=== PATIENT | female | born 1990 | race Caucasian/White ===

== ENCOUNTER 2016-11-16 13:46 | Emergency (ER) | payer MEDICAID ==
[~2016-11-16] VITALS: Ht 170.2 cm; Wt 75.0 kg
[~2016-11-16 13:46] MED LIST: ALBUAER3 INH; APIX2.5T PO; ASPI81TA11 PO; CYCL5TAB PO; FLUO20CA4 PO; prenatal vitamins PO
[2016-11-16 13:48] VITALS: BP 129/80; PULSE 112; RESP 20; TEMP 98; O2SAT 96
--- NOTE | 2016-11-16 15:31 | PD ---
HPI Chief Complaint: Back/ Neck Pain or Injury Time Seen by Provider: 15:30 Travel History International Travel<30 days: No Contact w/Intl Traveler<30days: No Traveled to known affect area: No History of Present Illness HPI 26 year-old female presents emergency department for evaluation of low back pain radiating into her left lower extremity. Patient states 2 nights ago she was therefore to hospital and received an injection of steroids for an upper rest or infection. She is currently on prednisone. She states that shortly after the injection she started developing pain shooting into her left leg. She states that the point where it was going down both legs today. She states that it has since resolved. She is sitting in the bed, crying, stating "this always happens to me. Accompanied emergency department and it takes so long that things get better." [facility]. Denies fever or chills. No urinary symptoms. No loss of bowel or bladder. No saddle paresthesia. No other symptoms to report. Patient is on ELOQUIS for a clotting disorder-she is uncertain of the name. PFSH Past Medical History Arthritis: No Asthma: Yes ( A CHILD) Autoimmune Disease: No Blood Disorders: Yes (PE) Anxiety: Yes Depression: Yes Heart Rhythm Problems: No Cancer: No Cardiovascular Problems: No High Cholesterol: No Chemotherapy: No Chest Pain: No Congestive Heart Failure: No COPD: No Cerebrovascular Accident: No Diabetes: No Diminished Hearing: No Endocrine: No Gastrointestinal Disorders: Yes (GALLSTONE PANCREATITIS) GERD: No Glaucoma: No Genitourinary: No Headaches: Yes Hepatitis: No Hiatal Hernia: No Hypertension: No Immune Disorder: No Kidney Stones: No Musculoskeletal: No Neurologic: No Psychiatric: No Reproductive: No Respiratory: No Migraines: Yes Myocardial Infarction: No Pancreatitis: Yes Radiation Therapy: No Renal Failure: No Seizures: No Sickle Cell Disease: No Sleep Apnea: No Thyroid Disease: No Ulcer: No ?: Not Menopausal: No : 1 Para: 1 Miscarriage: 0 : 0 Past Surgical History Abdominal Surgery: No AICD: No Appendectomy: No Arteriovenous Shunt: No Cardiac Surgery: No Cholecystectomy: Yes Ear Surgery: No Endocrine Surgery: No Eye Surgery: No Genitourinary Surgery: No Gynecologic Surgery: No Insulin Pump: No Joint Replacement: No Oral Surgery: No Pacemaker: No Thoracic Surgery: No Social History Alcohol Use: No Tobacco Use: No (quit) Substance Use: No Allergies-Medications (Allergen,Severity, Reaction): Coded Allergies: Sulfa (Verified Allergy, Severe, 11/16/16) Reported Meds & Prescriptions Reported Meds & Active Scripts Active Robaxin (Methocarbamol) 750 Mg Tab 750 Mg PO QID PRN Fluoxetine (Fluoxetine HCl) 20 Mg Cap 20 Mg PO DAILY Reported Eliquis (Apixaban) 2.5 Mg Tab 2.5 Mg PO BID Proair Hfa 8.5 GM Inh (Albuterol Sulfate) 90 Mcg/Act Aer 1 Puff INH Q6HR PRN 108 mcg/actuation Review of Systems Except as stated in HPI: all other systems reviewed are Neg Physical Exam Narrative GENERAL: Well-nourished, well-developed [place] patient, ambulatory and in no acute distress SKIN: Warm and dry. HEAD: Normocephalic. Atraumatic EYES: No scleral icterus. No injection or drainage. NECK: Supple, trachea midline. No JVD or lymphadenopathy. CARDIOVASCULAR: Regular rate and rhythm without murmurs, gallops, or rubs. RESPIRATORY: Breath sounds equal bilaterally. No accessory muscle use. MUSCULOSKELETAL: No cyanosis, or edema. No midline spinal tenderness. Equal strength bilateral lower extremity. No alterations in sensation the distal extremities. BACK: Nontender without obvious deformity. No CVA tenderness. Data Data Last Documented VS Vital Signs Date Time Temp Pulse Resp B/P Pulse Ox O2 Delivery O2 Flow Rate FiO2 11/16/16 16:20 98 20 11/16/16 13:48 98.0 129/80 96 Room Air Orders Splint Or Brace Apply/Monitor (11/16/16 15:31) Brace Quick Draw Corset (11/16/16 ) MDM Medical Decision Making Medical Screen Exam Complete: Yes Emergency Medical Condition: Yes Medical Record Reviewed: Yes Differential Diagnosis Sciatica versus low back strain versus discogenic pain versus radiculopathy Narrative Course 26 year-old female presents to emergency department for evaluation. Patient appears well distress. No focal deficits or weakness. No spinal tenderness. Patient is frustrated that she is not having symptoms currently and she waited so long in the emergency department. I offered her muscle relaxant and encouraged her to continue taking her steroids. I also offered her a quick draw back brace. She accepts these. She is counseled on care and is discharged at this time Diagnosis Primary Impression: Sciatica of right side Referrals: Primary Care Physician Patient Instructions: General Instructions, Sciatica (ED) Additional Instructions: Avoid activity that exacerbates pain Wear brace for support while ambulatory. Do not wear this at all times as it will weaken her car muscles, potentially worsening her low back pain and sciatica Follow-up with a primary care provider Return immediately with any acute worsening symptoms Med/Other Pt SpecificInfo: Prescription(s) given Scripts Methocarbamol (Robaxin)750 Mg [id number] Mg PO QID PRN (MUSCLE SPASM) #20 TAB Ref 0 Prov:Lydia Coelho 11/16/16 Disposition: 01 DISCHARGE HOME Condition: Stable Lydia Coelho Nov 16, 2016 15:30
[2016-11-16] MEDS ORDERED: ROBA750T PO (16:13)
[2016-11-25] MEDS ORDERED: VIST25CA PO (09:34)
[2017-01-11] MEDS ORDERED: WELLTAB39 PO (15:10)
[2017-02-03] MEDS ORDERED: NYSTCRE29 TOPICAL (15:41)
[2017-02-03] MEDS ORDERED: ACYC800T PO (15:41)
[2017-02-03] MEDS ORDERED: DIFL150T PO (15:41)
== END 2016-11-16 16:42 | disposition home or self-care (01) ==
LOC: NETRI 13:46
DX: M54.31 Sciatica, right side (principal); F41.8 Other specified anxiety disorders
CPT/HCPCS: 99283; L0627

== ENCOUNTER 2017-04-08 12:59 | Emergency (ER) | payer MEDICAID ==
[~2017-04-08] VITALS: Ht 170.2 cm; Wt 84.0 kg
[~2017-04-08 12:59] MED LIST changes: +ACYC800T PO; -ASPI81TA11 PO; -CYCL5TAB PO; +DIFL150T PO; -FLUO20CA4 PO; +NYSTCRE29 TOPICAL; +VIST25CA PO; +WELLTAB39 PO; -prenatal vitamins PO
[2017-04-08 13:01] VITALS: BP 125/98; PULSE 92; RESP 24; TEMP 97.9; O2SAT 98
[2017-04-08 13:20] VITALS: BP 126/89; PULSE 93; RESP 18; O2SAT 98
[2017-04-08] MEDS ORDERED: SODIUM CHLOR 0.9% 1000 ML INJ 1,000 ML IV ONE (13:30)
[2017-04-08] MEDS ORDERED: ONDANSETRON HCL 4 MG/2 ML VIAL IV PUSH ONE (13:30)
[2017-04-08] MEDS ORDERED: MORPHINE SULFATE 4 MG/ML INJ IV PUSH ONE (13:30)
--- NOTE | 2017-04-08 13:33 | PD ---
HPI Chief Complaint: Pain: Acute or Chronic Time Seen by Provider: 13:18 Travel History International Travel<30 days: No Contact w/Intl Traveler<30days: No Traveled to known affect area: No History of Present Illness HPI The patient is a 27-year-old female who presents to the emergency department for left ear pain at 3 weeks duration. The patient states she was evaluated 3 weeks ago and [facility] for a left earache and was diagnosed with an ear infection. The patient was placed on medications and discharged home. The patient returned continued to complain of left ear pain and then was diagnosed with bilateral ear infections and her antibiotics were changed. The patient was then evaluated at an urgent care last night he stated the ear infection appeared to have moved inside. However, the patient notes increasing pain of the left posterior neck that radiates up into the head and behind the left eye. The pain is worse with any type of movement, she states she developed an ocular migraine secondary to the pain. Patient does have a previous history of migraines. The pain is located mostly to the neck on the left side radiating to the head, she denies any acute trauma to the affected area and denies any fever, chills, or sweats. She does complain of mild pain with movement of the left thigh behind the left eye which she tripped is to her ocular migraine. The patient does have a history of antiphospholipid syndrome with previous PE, but does not take her Coumadin. The patient states she was being followed by deli cutter slicer but has not seen deli cutter slicer a prolonged period of time and has not been compliant with her Coumadin. The patient also states she is unable to see an ENT because she needs referral through her primary physician and does not have a primary physician currently. PFSH Past Medical History Hx Anticoagulant Therapy: Yes (SUPPOSED TO BE ON ELIQUIS - TOOK LAST 2 WEEKS AGO) Arthritis: No Asthma: Yes ( A CHILD) Autoimmune Disease: No Blood Disorders: Yes (PE 2013 ) Anxiety: Yes Depression: Yes Heart Rhythm Problems: No Cancer: No Cardiovascular Problems: Yes (PE 2013) High Cholesterol: No Chemotherapy: No Chest Pain: No Congestive Heart Failure: No COPD: No Cerebrovascular Accident: No Diabetes: No Diminished Hearing: No Endocrine: No Gastrointestinal Disorders: Yes (GALLSTONE PANCREATITIS) GERD: No Glaucoma: No Genitourinary: No Headaches: Yes Hepatitis: No Hiatal Hernia: No Hypertension: No Immune Disorder: No Kidney Stones: No Musculoskeletal: No Neurologic: No Psychiatric: No Reproductive: No Respiratory: Yes (ASTHMA ) Migraines: Yes Myocardial Infarction: No Pancreatitis: Yes Radiation Therapy: No Renal Failure: No Seizures: No Sickle Cell Disease: No Sleep Apnea: No Thyroid Disease: No Ulcer: No ?: Unknown Menopausal: No : 1 Para: 1 Miscarriage: 0 : 0 Past Surgical History Abdominal Surgery: No AICD: No Appendectomy: No Arteriovenous Shunt: No Cardiac Surgery: No Cholecystectomy: Yes (2009) Ear Surgery: No Endocrine Surgery: No Eye Surgery: No Genitourinary Surgery: No Gynecologic Surgery: No Insulin Pump: No Joint Replacement: No Oral Surgery: No Pacemaker: No Thoracic Surgery: No Social History Alcohol Use: No Tobacco Use: Yes (1-2 cig a day ) Substance Use: No Allergies-Medications (Allergen,Severity, Reaction): Coded Allergies: Sulfa (Verified Allergy, Severe, ITCHING, 04/08/17) Reported Meds & Prescriptions Reported Meds & Active Scripts Active Wellbutrin Xl 24 HR (Bupropion HCl) 300 Mg Tab 300 Mg PO DAILY Reported Eliquis (Apixaban) 2.5 Mg Tab 2.5 Mg PO BID Proair Hfa 8.5 GM Inh (Albuterol Sulfate) 90 Mcg/Act Aer 1 Puff INH Q6HR PRN 108 mcg/actuation Review of Systems Except as stated in HPI: all other systems reviewed are Neg General / Constitutional: No: Fever HENT: Positive: Headaches, Neck Pain, Earache Cardiovascular: No: Chest Pain or Discomfort Respiratory: No: Shortness of Breath Gastrointestinal: No: Nausea, Vomiting, Abdominal Pain Neurologic: No: Dizziness, Focal Abnormalities, Change in Mentation Physical Exam Narrative GENERAL: Awake, alert, nontoxic-appearing 27 year-old female who appears her stated age and is in no acute respiratory distress. She does appear mild discomfort. SKIN: Focused skin assessment warm/dry. HEAD: Atraumatic. Normocephalic. EYES: Pupils equal and round. Pupils are 4 mm bilateral and reactive. EOMs are intact. ENT: No nasal bleeding or discharge. Mucous membranes pink and moist. TMs have scarring on both of them, but there is no evidence of erythema or bulging. EACs are clear. NECK: Trachea midline. No JVD. Tenderness over the left paravertebral muscles, flexion and rotation to the left exacerbates her pain. CARDIOVASCULAR: Regular rate and rhythm. No murmur appreciated. RESPIRATORY: No accessory muscle use. Clear to auscultation. Breath sounds equal bilaterally. GASTROINTESTINAL: Abdomen soft, non-tender, nondistended. MUSCULOSKELETAL: No obvious deformities. No clubbing. No cyanosis. No edema. NEUROLOGICAL: Awake and alert. No obvious cranial nerve deficits. Motor grossly within normal limits. Normal speech. PSYCHIATRIC: Appropriate mood and affect; insight and judgment normal. Data Data Last Documented VS Vital Signs Date Time Temp Pulse Resp B/P Pulse Ox O2 Delivery O2 Flow Rate FiO2 04/08/17 14:27 67 17 124/86 99 Room Air 04/08/17 13:01 97.9 Orders Complete Blood Count With Diff (04/08/17 13:24) Comprehensive Metabolic Panel (04/08/17 13:24) Westergren Sedimentation Rate (04/08/17 13:24) Cta Neck W Iv Contrast W 3d (04/08/17 ) Cta Brain W Iv Contrast W 3d (04/08/17 ) Ct Brain W/O Iv Contrast(Rout) (04/08/17 ) Morphine Inj (Morphine Inj) (04/08/17 13:30) Ondansetron Inj (Zofran Inj) (04/08/17 13:30) Sodium Chlor 0.9% 1000 Ml Inj (Ns 1000 M (04/08/17 13:30) Iohexol 350 Inj (Omnipaque 350 Inj) (04/08/17 15:25) Labs Laboratory Tests Test 04/08/17 13:25 White Blood Count 8.6 TH/MM3 Red Blood Count 5.21 MIL/MM3 Hemoglobin 14.6 GM/DL Hematocrit 42.3 % Mean Corpuscular Volume 81.2 FL Mean Corpuscular Hemoglobin 28.1 PG Mean Corpuscular Hemoglobin 34.6 % Concent Red Cell Distribution Width 14.0 % Platelet Count 298 TH/MM3 Mean Platelet Volume 8.5 FL Neutrophils (%) (Auto) 47.5 % Lymphocytes (%) (Auto) 39.3 % Monocytes (%) (Auto) 7.5 % Eosinophils (%) (Auto) 4.9 % Basophils (%) (Auto) 0.8 % Neutrophils # (Auto) 4.1 TH/MM3 Lymphocytes # (Auto) 3.4 TH/MM3 Monocytes # (Auto) 0.6 TH/MM3 Eosinophils # (Auto) 0.4 TH/MM3 Basophils # (Auto) 0.1 TH/MM3 CBC Comment DIFF FINAL Differential Comment Erythrocyte Sedimentation Rate 16 mm/hr Sodium Level 138 MEQ/L Potassium Level 4.1 MEQ/L Chloride Level 103 MEQ/L Carbon Dioxide Level 26.1 MEQ/L Anion Gap 9 MEQ/L Blood Urea Nitrogen 12 MG/DL Creatinine 0.99 MG/DL Estimat Glomerular Filtration 68 ML/MIN Rate Random Glucose 101 MG/DL Calcium Level 9.1 MG/DL Total Bilirubin 0.4 MG/DL Aspartate Amino Transf 17 U/L (AST/SGOT) Alanine Aminotransferase 21 U/L (ALT/SGPT) Alkaline Phosphatase 88 U/L Total Protein 8.2 GM/DL Albumin 4.0 GM/DL [facility] Medical Decision Making Medical Screen Exam Complete: Yes Emergency Medical Condition: Yes Medical Record Reviewed: Yes Interpretation(s) Laboratory Tests Test 04/08/17 13:25 White Blood Count 8.6 TH/MM3 Red Blood Count 5.21 MIL/MM3 Hemoglobin 14.6 GM/DL Hematocrit 42.3 % Mean Corpuscular Volume 81.2 FL Mean Corpuscular Hemoglobin 28.1 PG Mean Corpuscular Hemoglobin 34.6 % Concent Red Cell Distribution Width 14.0 % Platelet Count 298 TH/MM3 Mean Platelet Volume 8.5 FL Neutrophils (%) (Auto) 47.5 % Lymphocytes (%) (Auto) 39.3 % Monocytes (%) (Auto) 7.5 % Eosinophils (%) (Auto) 4.9 % Basophils (%) (Auto) 0.8 % Neutrophils # (Auto) 4.1 TH/MM3 Lymphocytes # (Auto) 3.4 TH/MM3 Monocytes # (Auto) 0.6 TH/MM3 Eosinophils # (Auto) 0.4 TH/MM3 Basophils # (Auto) 0.1 TH/MM3 CBC Comment DIFF FINAL Differential Comment Erythrocyte Sedimentation Rate 16 mm/hr Sodium Level 138 MEQ/L Potassium Level 4.1 MEQ/L Chloride Level 103 MEQ/L Carbon Dioxide Level 26.1 MEQ/L Anion Gap 9 MEQ/L Blood Urea Nitrogen 12 MG/DL Creatinine 0.99 MG/DL Estimat Glomerular Filtration 68 ML/MIN Rate Random Glucose 101 MG/DL Calcium Level 9.1 MG/DL Total Bilirubin 0.4 MG/DL Aspartate Amino Transf 17 U/L (AST/SGOT) Alanine Aminotransferase 21 U/L (ALT/SGPT) Alkaline Phosphatase 88 U/L Total Protein 8.2 GM/DL Albumin 4.0 GM/DL Last Impressions Head CTA 04/08/17 0000 Signed Impressions: Service Date/Time: Saturday, April 08, 2017 15:02 - CONCLUSION: 1. Negative head CTA examination. Specifically, no evidence for large vessel occlusion or aneurysm. Pan Asencio MD Head CT 04/08/17 0000 Signed Impressions: Service Date/Time: Saturday, April 08, 2017 15:02 - CONCLUSION: 1. No acute intracranial abnormality. Pan Asencio MD Neck CTA reveals soft level II lymphadenopathy, no other abnormalities. No evidence of dissection. Differential Diagnosis Differential diagnosis includes carotid dissection, vertebral artery dissection , cavernous sinus thrombosis, venous sinus thrombosis, migraine, otitis media, otitis externa. Narrative Course IV was established, labs are drawn and sent, and the patient was placed on cardiac telemetry monitoring and continuous pulse oximetry monitoring. 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 CT the brain and CTA of the brain and carotids was obtained to evaluate for possible dissection. Labs are unremarkable. CT the brain is unremarkable. CTA reveals no evidence of dissection, does reveal cervical lymphadenopathy. The patient is afebrile and is her to been treated with antibiotics, she will need outpatient follow-up with ENT. Patient stable for outpatient follow-up and will be treated with ibuprofen and [place] as needed for pain. Diagnosis Primary Impression: Neck pain Patient Instructions: General Instructions Additional Instructions: Please provide the patient a copy of her CT results and lab results at discharge. Medications as directed. Follow-up with a primary physician and/or ENT for follow-up on an outpatient basis. Med/Other Pt SpecificInfo: Prescription(s) given Scripts Hydrocodone-Acetaminophen ([place])5-325 mg Tab1 Tab PO Q6H PRN (PAIN) #15 TAB Ref 0 Prov:Scott Rodriguez MD 04/08/17 Ibuprofen 600 Mg Gpm339 Mg PO Q6H PRN (Pain/Inflammation) #20 TAB Ref 0 Prov:Scott Rodriguez MD 04/08/17 Disposition: 01 DISCHARGE HOME Condition: Stable Scott Rodriguez MD Apr 08, 2017 13:32
[2017-04-08 13:41] LABS: AUTOMATED NEUTROPHIL # 4.1 TH/MM3 (1.8-7.7); BASOPHIL # 0.1 TH/MM3 (0-0.2); BASOPHIL % 0.8 % (0.0-2.0); EOSINOPHIL # 0.4 TH/MM3 (0-0.4); EOSINOPHIL % 4.9 % (0.0-4.0); HEMATOCRIT 42.3 % (35.0-46.0); HEMO FLAGS DIFF FINAL; LYMPH % 39.3 % (9.0-44.0); LYMPHOCYTE # 3.4 TH/MM3 (1.0-4.8); MEAN CELL VOLUME 81.2 FL (80.0-100.0); MEAN CORPUSCULAR HEMOGLOBIN 28.1 PG (27.0-34.0); MEAN CORPUSCULAR HGB CONC 34.6 % (32.0-36.0); MONO % 7.5 % (0.0-8.0); NEUT % 47.5 % (16.0-70.0); PLATELET COUNT 298 TH/MM3 (150-450); RED BLOOD COUNT 5.21 MIL/MM3 (4.00-5.30); WHITE BLOOD COUNT 8.6 TH/MM3 (4.0-11.0)
[2017-04-08 14:02] LABS: ANION GAP 9 MEQ/L (5-15); AST (GOT) 17 U/L (15-37); BICARBONATE 26.1 MEQ/L (21.0-32.0); BLOOD UREA NITROGEN 12 MG/DL (7-18); CHLORIDE 103 MEQ/L (98-107); GLOMERULAR FILTRATION RATE 68 ML/MIN (>89); POTASSIUM 4.1 MEQ/L (3.5-5.1); SODIUM (NA) 138 MEQ/L (136-145)
[2017-04-08 14:06] LABS: ALKALINE PHOSPHATASE 88 U/L (45-117); ALT (GPT) 21 U/L (10-53); TOTAL BILIRUBIN ADULT 0.4 MG/DL (0.2-1.0)
[2017-04-08 14:27] VITALS: BP 124/86; PULSE 67; RESP 17; O2SAT 99
[2017-04-08] MEDS ORDERED: IOHEXOL 350 MG/ML 10 ML VIAL (for RAD DIAG) IV ONE (15:25)
--- NOTE | 2017-04-08 15:30 | RADRPT ---
EXAM DATE/TIME: 04/08/2017 15:02 [facility] COMPARISON: No previous studies available for comparison. INDICATIONS : Left ear pain and cephalgia for three weeks. RADIATION DOSE: 56.35 CTDIvol (mGy) MEDICAL HISTORY : pulmonary embolism SURGICAL HISTORY : None. ENCOUNTER: Initial ACUITY: 3 weeks PAIN SCALE: 4/10 LOCATION: Left ear TECHNIQUE: Multiple contiguous axial images were obtained of the head. Using automated exposure control and adj ustment of the mA and/or kV according to patient size, radiation dose was kept as low as reasonably a chievable to obtain optimal diagnostic quality images. FINDINGS: CEREBRUM: The ventricles are normal for age. No evidence of midline shift, mass lesion, hemorrhage or acute in farction. No extra-axial fluid collections are seen. POSTERIOR FOSSA: The cerebellum and brainstem are intact. The 4th ventricle is midline. The cerebellopontine angle i s unremarkable. EXTRACRANIAL: The visualized portion of the orbits is intact. SKULL: The calvaria is intact. No evidence of skull fracture. Mastoid air cells are clear. Paranasal sinuse s are clear. CONCLUSION: 1. No acute intracranial abnormality. Pan Asencio MD on April 08, 2017 at 15:26 Board Certified Radiologist. This report was verified electronically.
--- NOTE | 2017-04-08 15:56 | RADRPT ---
EXAM DATE/TIME: 04/08/2017 15:02 [facility] COMPARISON: No previous studies available for comparison. INDICATIONS : Left ear pain and cephalgia for three weeks. IV CONTRAST: 95 cc Omnipaque 350 (iohexol) IV ; Cumulative dose for multiple exams. RADIATION DOSE: 13.81 CTDIvol (mGy) ; Combined studies MEDICAL HISTORY : pulmonary embolism SURGICAL HISTORY : None. ENCOUNTER: Initial ACUITY: 3 weeks PAIN SCALE: 5/10 LOCATION: Left ear TECHNIQUE: Volumetric scanning was performed using a multi-row detector CT scanner. The data was post processed with a variety of visualization algorithms including full volume maximum intensity projection, multi -planar sliding thin slab reformation, curved planar reformation, and surface rendering techniques. Using automated exposure control and adjustment of the mA and/or kV according to patient size, radiat ion dose was kept as low as reasonably achievable to obtain optimal diagnostic quality images. FINDINGS: There is excellent visualization of the major intracranial arteries out to the second-order branch ve ssels. There is no evidence for aneurysm, vessel truncation or stenosis, and no evidence for vascula r malformation. CONCLUSION: 1. Negative head CTA examination. Specifically, no evidence for large vessel occlusion or aneurysm. Pan Asencio MD on April 08, 2017 at 15:50 Board Certified Radiologist. This report was verified electronically.
--- NOTE | 2017-04-08 16:21 | RADRPT ---
EXAM DATE/TIME: 04/08/2017 15:02 [facility] COMPARISON: No previous studies available for comparison. INDICATIONS : Left ear pain and cephalgia for three weeks. IV CONTRAST: 95 cc Omnipaque 350 (iohexol) IV ; Cumulative dose for multiple exams. RADIATION DOSE: 13.81 CTDIvol (mGy) ; Combined studies MEDICAL HISTORY : pulmonary embolism SURGICAL HISTORY : None. ENCOUNTER: Initial ACUITY: 3 weeks PAIN SCALE: 5/10 LOCATION: Left ear Elevated flow velocities and ICA/CCA ratios have been found to correlate with increased degrees of vessel stenosis, calculated as percentage of diameter relative to a normal segment of distal ICA/CCA. TECHNIQUE: Volumetric scanning was performed using a multirow detector CT scanner. The data was post processed with a variety of visualization algorithms including full-volume maximum intensity projection, multip lanar sliding thin-slab reformation, curved-planar reformation, and surface-rendering techniques. Us ing automated exposure control and adjustment of the mA and/or kV according to patient size, radiatio n dose was kept as low as reasonably achievable to obtain optimal diagnostic quality images. FINDINGS: AORTIC ARCH: There is a three-vessel origin of the great vessels from the aorta. No evidence of ostial narrowing. RIGHT CAROTID: The common carotid artery is intact. The carotid bulb has a normal configuration without ulceration o r narrowing. The internal carotid artery lumen is smooth without stenosis. The external carotid kassandra ry is intact. LEFT CAROTID: The common carotid artery is intact. The carotid bulb has a normal configuration without ulceration or narrowing. The internal carotid artery lumen is smooth without stenosis. The external carotid ar nacho is intact. VERTEBRALS: The vertebral arteries have a symmetric diameter. No stenotic lesions are seen. Miscellaneous: Bilateral nonspecific level IIa and IIb lymph nodes. Thyroid appears unremarkable by CT. No additiona l masses or focal abnormality in the cervical soft tissues. CONCLUSION: 1. Normal CTA examination. No evidence for significant carotid or vertebral artery flow-limiting sten osis or dissection. 2. Incidental note of nonspecific level II cervical lymphadenopathy. Pan Asencio MD on April 08, 2017 at 16:13 Board Certified Radiologist. This report was verified electronically.
[2017-04-08] MEDS ORDERED: NORC5TAB PO (16:38)
[2017-04-08] MEDS ORDERED: IBUP-232 PO (16:38)
[2017-04-08 16:40] VITALS: BP 120/79; TEMP 97.7
== END 2017-04-08 16:45 | disposition home or self-care (01) ==
LOC: NEPE 13:50
DX: M54.2 Cervicalgia (principal); R51 Headache; H92.02 Otalgia, left ear; R59.0 Localized enlarged lymph nodes; Z86.711 Personal history of pulmonary embolism; Z79.01 Long term (current) use of anticoagulants; Z72.0 Tobacco use
CPT/HCPCS: 70450; 70496; 70498; 80053; 85025; 85652; 96361; 96374; 96375; 99285; J2270; J2405; J7030; Q9967

== ENCOUNTER 2017-10-10 12:21 | Emergency (ER) | payer MEDICAID ==
[~2017-10-10] VITALS: Ht 170.2 cm; Wt 81.8 kg
[~2017-10-10 12:21] MED LIST changes: -ACYC800T PO; -DIFL150T PO; +IBUP-232 PO; +NORC5TAB PO; -NYSTCRE29 TOPICAL; -VIST25CA PO
[2017-10-10 12:23] VITALS: BP 131/83; PULSE 79; RESP 16; TEMP 98.2; O2SAT 100
[2017-10-10] MEDS ORDERED: KETOROLAC TROMETHAMINE 60 MG/2 ML (IM) VIAL IM ONE (13:00)
[2017-10-10] MEDS ORDERED: TRAM50TA PO (13:14)
--- NOTE | 2017-10-10 13:14 | PD ---
HPI Chief Complaint: Pain: Acute or Chronic Time Seen by Provider: 12:51 Travel History International Travel<30 days: No Contact w/Intl Traveler<30days: No Traveled to known affect area: No History of Present Illness HPI Patient is a 27 year old female who presents to emergency room with complaints of pain. Reports history of antiphospholipid syndrome, reports history of PE as well as DVT. Patient reports that she used to be on anticoagulants that had no PCP to refill her prescription, reports that she has been off her medications for some time. Patient reports that she went to [facility] yesterday as she was complaining of right-sided thigh pain. An ultrasound was performed which showed DVT to her right thigh. Patient was subsequently started on Eliquis and discharged home with instructions to follow-up with her primary care doctor. Patient reports that she does not have a primary care doctor and needs help with follow-up care. She also reports that she still has pain to her right thigh. Patient denies any shortness of breath or chest pain at this time, no other complaints. Patient reports that she has been compliant with her Eliquis PFSH Past Medical History Hx Anticoagulant Therapy: Yes Arthritis: No Asthma: Yes ( A CHILD) Autoimmune Disease: No Blood Disorders: Yes (PE 2013 ) Anxiety: Yes Depression: Yes Heart Rhythm Problems: No Cancer: No Cardiovascular Problems: Yes (PE 2013) High Cholesterol: No Chemotherapy: No Chest Pain: No Congestive Heart Failure: No COPD: No Cerebrovascular Accident: No Diabetes: No Diminished Hearing: No Deep Vein Thrombosis: Yes (R THIGH) Endocrine: No Gastrointestinal Disorders: Yes (GALLSTONE PANCREATITIS) GERD: No Glaucoma: No Genitourinary: No Headaches: Yes Hepatitis: No Hiatal Hernia: No Hypertension: No Immune Disorder: No Kidney Stones: No Musculoskeletal: No Neurologic: No Psychiatric: No Reproductive: No Respiratory: Yes (ASTHMA ) Migraines: Yes Myocardial Infarction: No Pancreatitis: Yes Radiation Therapy: No Renal Failure: No Seizures: No Sickle Cell Disease: No Sleep Apnea: No Thyroid Disease: No Ulcer: No ?: Not LMP: 09/19/2017 Menopausal: No : 1 Para: 1 Miscarriage: 0 : 0 Past Surgical History Abdominal Surgery: No AICD: No Appendectomy: No Arteriovenous Shunt: No Cardiac Surgery: No Cholecystectomy: Yes (2009) Ear Surgery: No Endocrine Surgery: No Eye Surgery: No Genitourinary Surgery: No Gynecologic Surgery: No Insulin Pump: No Joint Replacement: No Oral Surgery: No Pacemaker: No Thoracic Surgery: No Social History Alcohol Use: No Tobacco Use: Yes (1-2 cig a day ) Substance Use: No Allergies-Medications (Allergen,Severity, Reaction): Coded Allergies: Sulfa (Sulfonamide Antibiotics) (Unverified Allergy, Severe, ITCHING, ) Reported Meds & Prescriptions Reported Meds & Active Scripts Active Tramadol (Tramadol HCl) 50 Mg Tab 50 Mg PO Q6H PRN [place] (Hydrocodone-Acetaminophen) 5-325 mg Tab 1 Tab PO Q6H PRN Ibuprofen 600 Mg Tab 600 Mg PO Q6H PRN Wellbutrin Xl 24 HR (Bupropion HCl) 300 Mg Tab 300 Mg PO DAILY Reported Eliquis (Apixaban) 2.5 Mg Tab 2.5 Mg PO BID Proair Hfa 8.5 GM Inh (Albuterol Sulfate) 90 Mcg/Act Aer 1 Puff INH Q6HR PRN 108 mcg/actuation Review of Systems General / Constitutional: No: Fever Eyes: No: Visual changes HENT: No: Headaches Cardiovascular: No: Chest Pain or Discomfort Respiratory: No: Cough, Shortness of Breath, Wheezing Gastrointestinal: No: Abdominal Pain Genitourinary: No: Dysuria Musculoskeletal: Positive: Pain (right thigh pain) Skin: No Rash Neurologic: No: Weakness Psychiatric: No: Depression Endocrine: No: Polydipsia Hematologic/Lymphatic: No: Easy Bruising Physical Exam Narrative GENERAL: Mild distress SKIN: Focused skin assessment warm/dry. HEAD: Atraumatic. Normocephalic. EYES: Pupils equal and round. No scleral icterus. No injection or drainage. ENT: No nasal bleeding or discharge. Mucous membranes pink and moist. NECK: Trachea midline. No JVD. CARDIOVASCULAR: Regular rate and rhythm. No murmur appreciated. RESPIRATORY: No accessory muscle use. Clear to auscultation. Breath sounds equal bilaterally. GASTROINTESTINAL: Abdomen soft, non-tender, nondistended. Hepatic and splenic margins not palpable. MUSCULOSKELETAL: No obvious deformities. No clubbing. No cyanosis. No edema. Pulses intact b/l, neurovascularly intact, there is no calf tenderness bilaterally NEUROLOGICAL: Awake and alert. No obvious cranial nerve deficits. Motor grossly within normal limits. Normal speech. PSYCHIATRIC: Appropriate mood and affect; insight and judgment normal. Data Data Last Documented VS Vital Signs Date Time Temp Pulse Resp B/P (MAP) Pulse Ox O2 Delivery O2 Flow Rate FiO2 10/10/17 12:40 18 10/10/17 12:23 98.2 79 131/83 (99) 100 Room Air Orders Orders Ed Urine Pregnancytest Poc (10/10/17 12:59) Drug Screen, Random Urine (10/10/17 12:59) Ketorolac Inj (Toradol Inj) (10/10/17 13:00) Oxycodone-Acetamin 5-325 Mg (Percocet (10/10/17 13:15) Labs Laboratory Tests Test 10/10/17 13:15 Urine Opiates Screen NEG Urine Barbiturates Screen NEG Urine Amphetamines Screen NEG Urine Benzodiazepines Screen NEG Urine Cocaine Screen NEG Urine Cannabinoids Screen NEG MDM Medical Decision Making Medical Screen Exam Complete: Yes Emergency Medical Condition: Yes Medical Record Reviewed: Yes Interpretation(s) Vital Signs Date Time Temp Pulse Resp B/P (MAP) Pulse Ox O2 Delivery O2 Flow Rate FiO2 10/10/17 12:40 18 10/10/17 12:23 98.2 79 16 131/83 (99) 100 Room Air Differential Diagnosis DVT Narrative Course 27-year-old female with history of antiphospholipid syndrome, presents to emergency room with complaints of pain to her right thigh pain after she is being treated and diagnosed with a DVT at an outside hospital. Patient requesting medications for pain control at this time, she is also requesting help with follow-up Patient was giving [facility] for follow up. Discussed with her that I will treat her pain at this time, understands that she will need to follow up with pcp for further narcotic prescriptions Diagnosis Primary Impression: Pain Additional Impression: DVT (deep venous thrombosis) Qualified Codes: I82.401 - Acute embolism and thrombosis of unspecified deep veins of right lower extremity Referrals: [facility] Patient Instructions: Narcotic given in the ED, General Instructions Additional Instructions: Follow-up with your primary care doctor as soon as possible Please take all medications as prescribed Med/Other Pt SpecificInfo: Prescription(s) given Scripts Tramadol (Tramadol) 50 Mg Tab 50 MG PO Q6H Y for PAIN, #12 TAB 0 Refills Prov: Soumya Vital DO 10/10/17 Disposition: 01 DISCHARGE HOME Condition: Stable Soumya Vital DO Oct 10, 2017 13:14
[2017-10-10] MEDS ORDERED: oxyCODONE/ACETAMINOPHEN 5 MG/325 MG TAB PO ONE (13:15)
== END 2017-10-10 14:20 | disposition home or self-care (01) ==
LOC: NEPD 12:21
DX: I82.401 Acute embolism and thrombosis of unspecified deep veins of right lower extremity (principal); D68.61 Antiphospholipid syndrome; F17.210 Nicotine dependence, cigarettes, uncomplicated; J45.909 Unspecified asthma, uncomplicated; Z79.01 Long term (current) use of anticoagulants; Z79.899 Other long term (current) drug therapy
CPT/HCPCS: 80307; 84703; 96372; 99284; J1885

== ENCOUNTER 2017-10-11 17:46 | Emergency (ER) | payer MEDICAID ==
[~2017-10-11 17:46] MED LIST changes: +TRAM50TA PO
[2017-10-11 17:48] VITALS: BP 124/75; PULSE 70; RESP 14; TEMP 98; O2SAT 99
--- NOTE | 2017-10-11 20:00 | PD ---
HPI Chief Complaint: Edema Time Seen by Provider: 19:29 Travel History International Travel<30 days: No Contact w/Intl Traveler<30days: No Traveled to known affect area: No History of Present Illness HPI 27-year-old white female with a history of antiphospholipid syndrome syndrome with DVT and PE in the past presents to the ER for evaluation of increasing left thigh pain area she was just diagnosed this past week with a right leg DVT and placed on ELIQUIS 5 mg twice a day. Patient states that she had been on ELIQUIS in the past. She had been on prophylactic therapy but she had discontinued it on her own. The patient states that she was seen at [facility] last week and was diagnosed with a right leg DVT. She was seen at the [facility] clinic earlier today for follow-up. She was told to come to the ER because of her left thigh pain and rule out left leg DVT. She denies any chest pain or shortness of breath. No nausea vomiting. No palpitations. No dyspnea on exertion. No tachycardia. PFSH Past Medical History Hx Anticoagulant Therapy: Yes Arthritis: No Asthma: Yes ( A CHILD) Autoimmune Disease: No Blood Disorders: Yes (PE 2013 ) Anxiety: Yes Depression: Yes Heart Rhythm Problems: No Cancer: No Cardiovascular Problems: Yes (PE 2013) High Cholesterol: No Chemotherapy: No Chest Pain: No Congestive Heart Failure: No COPD: No Cerebrovascular Accident: No Diabetes: No Diminished Hearing: No Deep Vein Thrombosis: Yes (R THIGH) Endocrine: No Gastrointestinal Disorders: Yes (GALLSTONE PANCREATITIS) GERD: No Glaucoma: No Genitourinary: No Headaches: Yes Hepatitis: No Hiatal Hernia: No Hypertension: No Immune Disorder: No Kidney Stones: No Musculoskeletal: No Neurologic: No Psychiatric: No Reproductive: No Respiratory: Yes (ASTHMA ) Migraines: Yes Myocardial Infarction: No Pancreatitis: Yes Radiation Therapy: No Renal Failure: No Seizures: No Sickle Cell Disease: No Sleep Apnea: No Thyroid Disease: No Ulcer: No ?: Not Menopausal: No : 1 Para: 1 Miscarriage: 0 : 0 Past Surgical History Abdominal Surgery: No AICD: No Appendectomy: No Arteriovenous Shunt: No Cardiac Surgery: No Cholecystectomy: Yes (2009) Ear Surgery: No Endocrine Surgery: No Eye Surgery: No Genitourinary Surgery: No Gynecologic Surgery: No Insulin Pump: No Joint Replacement: No Oral Surgery: No Pacemaker: No Thoracic Surgery: No Social History Alcohol Use: No Tobacco Use: Yes (1-2 cig a day ) Substance Use: No Allergies-Medications (Allergen,Severity, Reaction): Coded Allergies: Sulfa (Sulfonamide Antibiotics) (Unverified Allergy, Severe, ITCHING, ) Reported Meds & Prescriptions Reported Meds & Active Scripts Active Tramadol (Tramadol HCl) 50 Mg Tab 50 Mg PO Q6H PRN [place] (Hydrocodone-Acetaminophen) 5-325 mg Tab 1 Tab PO Q6H PRN Ibuprofen 600 Mg Tab 600 Mg PO Q6H PRN Wellbutrin Xl 24 HR (Bupropion HCl) 300 Mg Tab 300 Mg PO DAILY Reported Eliquis (Apixaban) 2.5 Mg Tab 2.5 Mg PO BID Proair Hfa 8.5 GM Inh (Albuterol Sulfate) 90 Mcg/Act Aer 1 Puff INH Q6HR PRN 108 mcg/actuation Review of Systems Except as stated in HPI: all other systems reviewed are Neg Physical Exam Narrative GENERAL: Well-developed, well-nourished in no acute distress. Nontoxic appearing. HEAD: Normocephalic, atraumatic. EYES: Pupils equal round and reactive. Extraocular motions intact. No scleral icterus. No injection or drainage. ENT: TMs clear without erythema. The external auditory canals clear. Nose: clear . Posterior pharynx is pink and moist. No tonsillar edema or exudate. Uvula midline. Airway patent. NECK: Trachea midline.Supple, nontender, moves head freely. No central bony tenderness or spasm. CARDIOVASCULAR: Regular rate and rhythm without murmurs, gallops, or rubs. RESPIRATORY: Clear to auscultation. Breath sounds equal bilaterally. No wheezes , rales, or rhonchi. GASTROINTESTINAL: Abdomen soft, non-tender, nondistended. No hepato-splenomegaly , or palpable masses. No guarding. EXTREMITIES: No clubbing, cyanosis, or edema. No joint tenderness, effusion, or edema noted. Patient complains of mild tenderness to the medial aspect of the right thigh. Patient does also complain of some mild discomfort to the medial aspect the left thigh. No Homans sign. She has good distal pulses. Her legs are warm to touch. There is no color differences. There is no size difference. BACK: Nontender without deformity or crepitance. No flank tenderness. Data Data Last Documented VS Vital Signs Date Time Temp Pulse Resp B/P (MAP) Pulse Ox O2 Delivery O2 Flow Rate FiO2 10/11/17 17:48 98.0 70 14 124/75 (91) 99 Orders Orders Us Leg Venous Doppler Bilat (10/11/17 19:38) MDM Medical Decision Making Medical Screen Exam Complete: Yes Emergency Medical Condition: Yes Medical Record Reviewed: Yes Interpretation(s) Last 24 hours Impressions Lower Extremity Ultrasound 10/11/171937 Signed Impressions: Service Date/Time: Wednesday, October 11, 2017 20:40 - CONCLUSION: 1. Positive for deep venous thrombosis in the right lower extremity proximal thigh. Harry Bassett MD Differential Diagnosis Differential diagnoses: Acute DVT, chronic DVT, antiphospholipid syndrome, anxiety, noncompliance Narrative Course Ultrasound of bilateral lower extremities reveal patient's right superficial femoral DVT no other acute DVT. Patient is to continue her ELIQUIS Diagnosis Primary Impression: Right leg DVT Qualified Codes: I82.411 - Acute embolism and thrombosis of right femoral vein Additional Impression: Left leg pain Referrals: [facility] 2 days Patient Instructions: General Instructions Additional Instructions: Rest. Elevation. Continue your medications. Return to the ER for any problems. Med/Other Pt SpecificInfo: No Change to Meds Disposition: 01 DISCHARGE HOME Condition: Stable Eulalio Velasquez Oct 11, 2017 20:00
--- NOTE | 2017-10-11 22:23 | RADRPT ---
EXAM DATE/TIME: 10/11/2017 20:40 [facility] COMPARISON: US LEG BILATERAL VENOUS DOPPLER, October 06, 2014, 10:53. INDICATIONS : Bilateral leg swelling. MEDICAL HISTORY : Deep venous thrombosis. Pancreatitis. . Depression. Anxiety. Pulmonary embolism. Migraines. Anticoagulant therapy. Asthma. SURGICAL HISTORY : Cholecystectomy. ENCOUNTER: Initial ACUITY: PAIN SCORE: LOCATION: Bilateral legs. TECHNIQUE: Venous ultrasound of the left and right leg was performed from the inguinal ligament to the proximal calf. Real-time, color Doppler and spectral tracing, compression and augmentation techniques were us ed. FINDINGS: RIGHT LEG: Abnormal. There is echogenic thrombus in the proximal superficial femoral vein with decreased flow a nd no augmentation to distal compression.. LEFT LEG: There is normal compressibility of the deep venous system from the inguinal region to the proximal ca lf. No echogenic clot is seen in the lumen of the common femoral, femoral, popliteal, and posterior tibial veins. There is a normal response of the venous system to proximal and distal augmentation an d respiration. CONCLUSION: 1. Positive for deep venous thrombosis in the right lower extremity proximal thigh. Harry Bassett MD on October 11, 2017 at 22:18 Board Certified Radiologist. This report was verified electronically.
== END 2017-10-11 22:49 | disposition home or self-care (01) ==
LOC: NEPD 17:46
DX: I82.411 Acute embolism and thrombosis of right femoral vein (principal); D68.61 Antiphospholipid syndrome; J45.909 Unspecified asthma, uncomplicated; F41.9 Anxiety disorder, unspecified; F32.9 Major depressive disorder, single episode, unspecified; F17.210 Nicotine dependence, cigarettes, uncomplicated; Z87.19 Personal history of other diseases of the digestive system; Z86.711 Personal history of pulmonary embolism; Z79.899 Other long term (current) drug therapy
CPT/HCPCS: 93970

== ENCOUNTER 2017-12-11 10:11 | Emergency (ER) | payer MEDICAID ==
[~2017-12-11] VITALS: Ht 170.2 cm; Wt 88.8 kg
[2017-12-11 10:24] VITALS: BP 126/73; PULSE 74; RESP 18; TEMP 98.4; O2SAT 99
--- NOTE | 2017-12-11 12:40 | PD ---
HPI Chief Complaint: Edema Time Seen by Provider: 12:19 Travel History International Travel<30 days: No Contact w/Intl Traveler<30days: No Traveled to known affect area: No History of Present Illness HPI 27 are old female with history of antiphospholipid syndrome, DVT, PE, on Eliquis , here for evaluation of right posterior calf pain last night. Patient reports severe pain that feels similar to when she was diagnosed with a DVT in September of last year. Pain is severe, constant, sharp, worse with movement and palpation. She denies chest pain or dyspnea. She reports compliance with Eliquis. PFSH Past Medical History Hx Anticoagulant Therapy: Yes (ELIQUIS 5 MG BID) Arthritis: No Asthma: Yes ( A CHILD) Autoimmune Disease: No Blood Disorders: Yes (PE 2013 ) Anxiety: Yes Depression: Yes Heart Rhythm Problems: No Cancer: No Cardiovascular Problems: Yes (PE 2013) High Cholesterol: No Chemotherapy: No Chest Pain: No Congestive Heart Failure: No COPD: No Cerebrovascular Accident: No Diabetes: No Diminished Hearing: No Deep Vein Thrombosis: Yes (R THIGH) Endocrine: No Gastrointestinal Disorders: Yes (GALLSTONE PANCREATITIS) GERD: No Glaucoma: No Genitourinary: No Headaches: Yes Hepatitis: No Hiatal Hernia: No Hypertension: No Immune Disorder: No Kidney Stones: No Musculoskeletal: No Neurologic: No Psychiatric: No Reproductive: No Respiratory: Yes (ASTHMA ) Migraines: Yes Myocardial Infarction: No Pancreatitis: Yes Radiation Therapy: No Renal Failure: No Seizures: No Sickle Cell Disease: No Sleep Apnea: No Thyroid Disease: No Ulcer: No ?: Not LMP: 2 WEEKS AGO Menopausal: No : 1 Para: 1 Miscarriage: 0 : 0 Past Surgical History Abdominal Surgery: No AICD: No Appendectomy: No Arteriovenous Shunt: No Cardiac Surgery: No Cholecystectomy: Yes (2009) Ear Surgery: No Endocrine Surgery: No Eye Surgery: No Genitourinary Surgery: No Gynecologic Surgery: No Insulin Pump: No Joint Replacement: No Oral Surgery: No Pacemaker: No Thoracic Surgery: No Social History Alcohol Use: No Tobacco Use: Yes (1-2 cig a day ) Substance Use: No Allergies-Medications (Allergen,Severity, Reaction): Coded Allergies: Sulfa (Sulfonamide Antibiotics) (Unverified Allergy, Severe, ITCHING, 12/11) Reported Meds & Prescriptions Reported Meds & Active Scripts Active Tramadol (Tramadol HCl) 50 Mg Tab 50 Mg PO Q6H PRN [place] (Hydrocodone-Acetaminophen) 5-325 mg Tab 1 Tab PO Q6H PRN Reported Eliquis (Apixaban) 2.5 Mg Tab 5 Mg PO BID Proair Hfa 8.5 GM Inh (Albuterol Sulfate) 90 Mcg/Act Aer 1 Puff INH Q6HR PRN 108 mcg/actuation Review of Systems Except as stated in HPI: all other systems reviewed are Neg Physical Exam Narrative GENERAL: Well-developed, well-nourished, comfortable, no apparent distress. SKIN: Focused skin assessment warm/dry. HEAD: Atraumatic. Normocephalic. EYES: Pupils equal and round. No scleral icterus. No injection or drainage. ENT: No nasal bleeding or discharge. Mucous membranes pink and moist. NECK: Trachea midline. No JVD. CARDIOVASCULAR: Regular rate and rhythm. Bilateral dorsalis pedis pulses are brisk and equal. RESPIRATORY: No accessory muscle use. Clear to auscultation. Breath sounds equal bilaterally. MUSCULOSKELETAL: Mild right calf swelling when compared to the left with moderate tenderness, all compartments are supple. Bilateral feet are warm with normal capillary refill and brisk dorsalis pedis pulses bilaterally. No signs of phlegmasia cerulea dolens. Normal range of motion in flexion and extension of the right hip, knee, and ankle joint without overlying warmth or erythema. NEUROLOGICAL: Awake and alert. No obvious cranial nerve deficits. Motor grossly within normal limits. Normal speech. PSYCHIATRIC: Appropriate mood and affect; insight and judgment normal. Data Data Last Documented VS Vital Signs Date Time Temp Pulse Resp B/P (MAP) Pulse Ox O2 Delivery O2 Flow Rate FiO2 12/11/17 14:15 82 16 111/71 (84) 98 Room Air 12/11/17 10:24 98.4 Orders Orders Us Leg Venous Doppler (12/11/17 ) Oxycodone-Acetamin 10-325 Mg (Percocet 1 (12/11/17 12:45) [facility] Medical Decision Making Medical Screen Exam Complete: Yes Emergency Medical Condition: Yes Differential Diagnosis DVT, muscular strain, compartment syndrome unlikely Narrative Course Vital signs reviewed and are within normal limits. Right lower extremity venous duplex: CONCLUSION: 1. There is DVT extending throughout the saphenofemoral vein in the thigh. This is unchanged compared to previous. Patient was made aware of all findings. She was given a dose of Percocet with improvement in pain. There are no signs of phlegmasia cerulea dolens. She reports compliance with Eliquis. I agree with her that she should double her Eliquis to 10 mg twice a day for the next week and then go back to 5 mg twice a day. 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 Bonds, however she has not done so yet. At this point this appears to be a chronic DVT, and I believe she is stable for discharge home with outpatient follow-up with Dr. Bonds this week. She states she will call their office tomorrow to make an appointment. She was advised on when to return to the emergency department. She verbalizes understanding and agreement with plan. Diagnosis Primary Impression: Chronic deep vein thrombosis (DVT) Qualified Codes: I82.501 - Chronic embolism and thrombosis of unspecified deep veins of right lower extremity Referrals: Anisa Bonds MD 3 days Additional Instructions: Follow-up with Dr. Bonds this week. Return to the emergency department for worsening symptoms or any other concerns. Scripts Oxycodone-Acetaminophen (Percocet) 10-325 mg Tab 1 TAB PO Q6H Y for PAIN, #12 TAB 0 Refills Prov: Martell Frankel MD 12/11/17 Disposition: 01 DISCHARGE HOME Condition: Stable Martell Frankel MD Dec 11, 2017 12:40
[2017-12-11] MEDS ORDERED: oxyCODONE/ACETAMINOPHEN 10 MG/325 MG TAB PO ONE (12:45)
[2017-12-11 12:59] VITALS: BP 125/77; PULSE 69; RESP 18; O2SAT 99
[2017-12-11 14:15] VITALS: BP 111/71; PULSE 82; RESP 16; O2SAT 98
--- NOTE | 2017-12-11 14:55 | RADRPT ---
EXAM DATE/TIME: 12/11/2017 13:53 [facility] COMPARISON: US LEG BILATERAL VENOUS DOPPLER, October 11, 2017, 20:40. INDICATIONS : Right leg previous DVT. MEDICAL HISTORY : Deep venous thrombosis. . Pancreatitis. Migraines. Anticoagulant therapy. Pulmonary embol ism. Asthma. Depression. Anxiety. SURGICAL HISTORY : Cholecystectomy. ENCOUNTER: Subsequent ACUITY: 2 months PAIN SCORE: 5/10 LOCATION: Right leg. TECHNIQUE: Venous ultrasound of the leg was performed from the inguinal ligament to the proximal calf. Real-ernesto e, color Doppler and spectral tracing, compression and augmentation techniques were used. FINDINGS: The examination demonstrates DVT extending throughout the saphenofemoral vein. The popliteal vein is patent. The tibial veins are patent. The common femoral vein and distal iliac vein are patent. CONCLUSION: 1. There is DVT extending throughout the saphenofemoral vein in the thigh. This is unchanged compared to previous. Stephen Worley MD on December 11, 2017 at 14:52 Board Certified Radiologist. This report was verified electronically.
[2017-12-11] MEDS ORDERED: PERC10TA27 PO (15:24)
[2017-12-11 15:40] VITALS: BP 120/66
== END 2017-12-11 15:40 | disposition home or self-care (01) ==
LOC: PHED 10:11
DX: I82.511 Chronic embolism and thrombosis of right femoral vein (principal); D68.61 Antiphospholipid syndrome; F41.9 Anxiety disorder, unspecified; F32.9 Major depressive disorder, single episode, unspecified; J45.909 Unspecified asthma, uncomplicated; F17.210 Nicotine dependence, cigarettes, uncomplicated; Z86.711 Personal history of pulmonary embolism
CPT/HCPCS: 93971; 99284

== ENCOUNTER 2017-12-17 19:23 | Emergency (ER) | payer MEDICAID ==
[~2017-12-17] VITALS: Ht 170.2 cm; Wt 90.0 kg
[~2017-12-17 19:23] MED LIST changes: -IBUP-232 PO; -NORC5TAB PO; +PERC10TA27 PO; -TRAM50TA PO; -WELLTAB39 PO
[2017-12-17 19:25] VITALS: BP 122/58; PULSE 106; RESP 17; TEMP 97.9; O2SAT 97
[2017-12-17] MEDS ORDERED: HYDROmorphone HCL PF 2 MG/ML VIAL IM ONE (19:45)
[2017-12-17] MEDS ORDERED: ENOX80P SQ (19:50)
[2017-12-17] MEDS ORDERED: TYLE325T PO (19:50)
--- NOTE | 2017-12-17 20:26 | RADRPT ---
EXAM DATE/TIME: 12/17/2017 20:02 [facility] COMPARISON: No previous studies available for comparison. INDICATIONS : Right leg swelling. MEDICAL HISTORY : Deep venous thrombosis. . Pancreatitis. Migraines. Anticoagulant therapy. Pulmonary embolism . Asthma. Depression. Anxiety. SURGICAL HISTORY : Cholecystectomy. ENCOUNTER: Initial ACUITY: 1 week PAIN SCORE: 10/10 LOCATION: Right leg. TECHNIQUE: Venous ultrasound of the leg was performed from the inguinal ligament to the proximal calf. Real-ernesto e, color Doppler and spectral tracing, compression and augmentation techniques were used. FINDINGS: Examination is positive for occlusive thrombus extending from the right superficial femoral vein thro ugh the posterior tibial vein. Remainder of the deep right lower extremity veins are patent. CONCLUSION: 1. Positive flow occlusive thrombus extending from the superficial femoral vein through the posterior tibial vein. Eulalio Carlson MD on December 17, 2017 at 20:23 Board Certified Radiologist. This report was verified electronically.
[2017-12-17] MEDS ORDERED: ASPIRIN 325 MG TAB PO ONE (20:30)
[2017-12-17] MEDS ORDERED: TRAM50 PO (20:59)
--- NOTE | 2017-12-17 20:59 | PD ---
HPI . Right leg pain Chief Complaint: Injury Time Seen by Provider: 19:35 Travel History International Travel<30 days: No Contact w/Intl Traveler<30days: No Traveled to known affect area: No History of Present Illness HPI 27-year-old female recently diagnosed with DVT, started on Eliquis, improved after the first week, and possibly 1 month into treatment, noted increased swelling and pain in the same lower extremity. Patient was seen at [facility] 4 days ago had a repeat ultrasound performed with interval worsening. Patient was started on Lovenox. Patient now presents to this evening with interval worsening of pain 10 out of 10, and slight increase in swelling. Patient is under the care of a color adviser Dr. Crockett, workup and studies pending as per patient. PFSH Past Medical History Narrative Medical DVT Hx Anticoagulant Therapy: Yes (ELIQUIS 5 MG BID) Arthritis: No Asthma: Yes ( A CHILD) Autoimmune Disease: No Blood Disorders: Yes (PE 2013, ) Anxiety: Yes Depression: Yes Heart Rhythm Problems: No Cancer: No Cardiovascular Problems: Yes (PE 2013) High Cholesterol: No Chemotherapy: No Chest Pain: No Congestive Heart Failure: No COPD: No Cerebrovascular Accident: No Diabetes: No Diminished Hearing: No Deep Vein Thrombosis: Yes (R THIGH) Endocrine: No Gastrointestinal Disorders: Yes (GALLSTONE PANCREATITIS) GERD: No Glaucoma: No Genitourinary: No Headaches: Yes Hepatitis: No Hiatal Hernia: No Hypertension: No Immune Disorder: No Kidney Stones: No Musculoskeletal: No Neurologic: No Psychiatric: No Reproductive: No Respiratory: Yes (ASTHMA ) Migraines: Yes Myocardial Infarction: No Pancreatitis: Yes Radiation Therapy: No Renal Failure: No Seizures: No Sickle Cell Disease: No Sleep Apnea: No Thyroid Disease: No Ulcer: No ?: Not Menopausal: No : 1 Para: 1 Miscarriage: 0 : 0 Past Surgical History Abdominal Surgery: No AICD: No Appendectomy: No Arteriovenous Shunt: No Cardiac Surgery: No Cholecystectomy: Yes (2009) Ear Surgery: No Endocrine Surgery: No Eye Surgery: No Genitourinary Surgery: No Gynecologic Surgery: No Insulin Pump: No Joint Replacement: No Oral Surgery: No Pacemaker: No Thoracic Surgery: No Social History Alcohol Use: Yes (occasion) Tobacco Use: Yes (1/2ppd day ) Substance Use: Yes (marijuana occasion) Allergies-Medications (Allergen,Severity, Reaction): Coded Allergies: Sulfa (Sulfonamide Antibiotics) (Unverified Allergy, Severe, ITCHING, 12/17) Reported Meds & Prescriptions Reported Meds & Active Scripts Active Reported Tylenol (Acetaminophen) 325 Mg Tab 1,000 Mg PO Q6H PRN Lovenox Inj (Enoxaparin Sodium) 80 mg/0.8 ML Syr 87 Mg SQ BID Narrative Medication Allergies and medications reviewed Review of Systems Except as stated in HPI: all other systems reviewed are Neg General / Constitutional: No: Fever Eyes: No: Visual changes HENT: No: Headaches Cardiovascular: No: Chest Pain or Discomfort Respiratory: No: Shortness of Breath Gastrointestinal: No: Abdominal Pain Genitourinary: No: Dysuria Musculoskeletal: Positive: Edema, Pain, No: Limited ROM Skin: No Rash Neurologic: No: Weakness Psychiatric: No: Depression Endocrine: No: Polydipsia Hematologic/Lymphatic: No: Easy Bruising Physical Exam Narrative GENERAL: Awake alert oriented 3 in some degree of discomfort but otherwise stable SKIN: Warm and dry. Color is normal diaphoresis cyanosis or pallor HEAD: Atraumatic. Normocephalic. EYES: Pupils equal and round. No scleral icterus. No injection or drainage. ENT: No nasal bleeding or discharge. Mucous membranes pink and moist. NECK: Trachea midline. No JVD. CARDIOVASCULAR: Regular rate and rhythm. RESPIRATORY: No accessory muscle use. Clear to auscultation. Breath sounds equal bilaterally. GASTROINTESTINAL: Abdomen soft, non-tender, nondistended. Hepatic and splenic margins not palpable. MUSCULOSKELETAL: Extremities without clubbing, cyanosis, mild edema right lower extremity.. No obvious deformities. Tender popliteal fossa proximal calf and medial thigh NEUROLOGICAL: Awake and alert. No obvious cranial nerve deficits. Motor grossly within normal limits. Five out of 5 muscle strength in the arms and legs. Normal speech. PSYCHIATRIC: Appropriate mood and affect; insight and judgment normal. Data Data Last Documented VS Vital Signs Date Time Temp Pulse Resp B/P (MAP) Pulse Ox O2 Delivery O2 Flow Rate FiO2 12/17/17 19:41 96 16 99 Room Air 12/17/17 19:25 97.9 122/58 (79) Orders Orders Hydromorphone Pf Inj (Dilaudid Pf Inj) (12/17/17 19:45) Us Leg Venous Doppler (12/17/17 ) Aspirin (Aspirin) (12/17/17 20:30) [facility] Medical Decision Making Medical Screen Exam Complete: Yes Emergency Medical Condition: Yes Medical Record Reviewed: Yes Differential Diagnosis DVT, pain Narrative Course Repeat ultrasound right lower extremity shows worsening of patient's DVT when extension both distally and proximally in the superficial femoral vein and down into the popliteal fossa down to the patient's calf. Case was discussed with Dr. Sommers from hematology oncology and associate of patient's color adviser Dr. Bonds, recommends adding aspirin to the patient's regimen, and expedited follow-up early this week with Dr. Prado. Pain medication added to patient's regimen, discharge Diagnosis Primary Impression: Right leg DVT Qualified Codes: I82.411 - Acute embolism and thrombosis of right femoral vein Patient Instructions: Deep Venous Thrombosis (ED), General Instructions Additional Instructions: Aspirin 325 mg daily. Continue Lovenox as prescribed. Ultram 50 mg every 6-8 hours as needed for pain. Follow-up with your color adviser, call tomorrow for an appointment either tomorrow or the next day. Return promptly for worsening Scripts Tramadol (Ultram) 50 Mg Tab 50 MG PO Q8H Y for PAIN, #30 TAB 0 Refills Prov: Ulises Arroyo MD 12/17/17 Disposition: 01 DISCHARGE HOME Condition: Stable Ulises Arroyo MD Dec 17, 2017 20:59
== END 2017-12-17 21:43 | disposition home or self-care (01) ==
LOC: NEPC 19:23
DX: I82.431 Acute embolism and thrombosis of right popliteal vein (principal); I82.811 Embolism and thrombosis of superficial veins of right lower extremity; J45.909 Unspecified asthma, uncomplicated; F41.9 Anxiety disorder, unspecified; F32.9 Major depressive disorder, single episode, unspecified; F17.200 Nicotine dependence, unspecified, uncomplicated; F12.90 Cannabis use, unspecified, uncomplicated; Z86.718 Personal history of other venous thrombosis and embolism; Z86.711 Personal history of pulmonary embolism
CPT/HCPCS: 93971; 96372; 99284; E0113; J1170

== ENCOUNTER 2018-05-07 19:04 | Inpatient (IN) ==
[2018-05-07] MEDS ORDERED: Piperacil/Tazo 4.5 GM Premix 4.5 GM/100 ML BAG IV.SIG STA (20:02)
[2018-05-07] MEDS ORDERED: Acetaminophen 325 MG Tablet PO ONE (20:02)
[2018-05-07] MEDS ORDERED: Vancomycin Inj 1,000 MG in Sodium Chlor 0.9% Inj 250 ML IV.SIG STA (20:02)
[2018-05-07] MEDS ORDERED: Morphine Inj 4 MG/ML Vial IV.PUSH ONE (20:09)
[2018-05-07] MEDS ORDERED: Sod Chloride 0.9% Inj 1,000 ML IV.SIG SCH ×2 (20:15)
--- NOTE | 2018-05-07 20:19 | ED ---
HPI General Chief Complaint: Abdominal Pain Stated Complaint: lft side abd pain/ cellulitis/x2days Time Seen by Provider: 05/07/18 19:51 History of Present Illness HPI narrative: 28-year-old female with A past medical history of antiphospholipid antibody syndrome on Coumadin with history of PE and DVT in the past presents to the emergency room with a 7 day history of left lower quadrant abdominal wall ,abscess and cellulitis that failed outpatient treatment of clindamycin for the past week. Today, the patient started having low-grade temperature and chills along with palpitations and increasing abdominal pain. Patient noticed the redness and the abscess expanding further beyond the marking. Patient was seen in an outpatient clinic 4 days ago and was placed on clindamycin however her condition worsened., Cough, dysuria, abdominal injury or history of MRSA. Related Data Home Medications Medication Instructions Recorded Confirmed albuterol sulfate [ProAir HFA] 2 puff INHALATION Q4-6H PRN 05/07/18 05/07/18 clindamycin HCl 300 mg PO QID 05/07/18 05/07/18 lorazepam 0.5 mg PO DAILY PRN 05/07/18 05/07/18 warfarin 7.5 mg PO DAILY 05/07/18 05/07/18 Allergies Allergy/AdvReac Type Severity Reaction Status Date / Time Sulfa (Sulfonamide Allergy Severe ITCHING Verified 05/07/18 19:29 Antibiotics) Review of Systems Constitutional Denies fever(s) Eyes Denies change in vision ENT Denies headache(s) and Denies nasal congestion Cardiovascular Reports palpitations Respiratory Denies dyspnea Gastrointestinal Reports abdominal pain Genitourinary Denies difficulty voiding Musculoskeletal Denies myalgias Integumentary/Breasts Reports erythema and Reports skin pain Neurologic Denies headache(s) Psychiatric Denies depression Endocrine Denies polyuria Hematologic/Lymphatic Denies easy bruising PMFSH Medical History Medical History APS (antiphospholipid syndrome) (Acute) Anxiety (Acute) Asthma (Acute) Bronchitis (Acute) DVT (deep venous thrombosis) (Acute) Depression (Acute) Gallbladder disease (Acute) Lupus anticoagulant disorder (Acute) Migraine (Acute) Pneumonia (Acute) Pulmonary embolism (Acute) Reactive airway disease (Acute) Visual impairment (Acute) Surgical History Surgical History History of cholecystectomy (Acute) Social History Social History Substance History: No History of Abuse Second Hand Smoke Exposure: Yes (SPOUSE) Smoking Status: Current some day smoker Tobacco Type: Cigarettes How Often Do You Have a Drink Containing Alcohol: 2 to 4 times a month Recent Travel in [facility] within the Last 8 Weeks: No Recent Out of Country Travel within the Last 8 Weeks: No Exam Narrative Exam Narrative: GENERAL: Patient is alert and oriented -3 SKIN: Focused skin assessment warm/dry. HEAD: Atraumatic. Normocephalic. EYES: Pupils equal and round. No scleral icterus. No injection or drainage. ENT: No nasal bleeding or discharge. Mucous membranes pink and moist. NECK: Trachea midline. No JVD. CARDIOVASCULAR: Tachycardia. No murmur appreciated. RESPIRATORY: No accessory muscle use. Clear to auscultation. Breath sounds equal bilaterally. GASTROINTESTINAL: Abdomen soft, Guarding of the left lower quadrant was an obvious large erythematous base area measuring 14 x 6 cm with the center of fluctuation and necrotizing skin, nondistended. Hepatic and splenic margins not palpable. MUSCULOSKELETAL: No obvious deformities. No clubbing. No cyanosis. No edema. NEUROLOGICAL: Awake and alert. No obvious cranial nerve deficits. Motor grossly within normal limits. Normal speech. PSYCHIATRIC: Appropriate mood and affect; insight and judgment normal. Procedures Abscess I/D Site: abdomen Side (if applicable): left Anesthetic used: with epi Technique: incised with #11 blade Amount of fluid expressed (mL): 5 Irrigation: No Packing used?: iodoform Course Reevaluation(s) Reevaluation #1: Patient condition improved during the ER course. I personally reexamined and counseled the patient about her diagnosis and results. Time: 23:51 Initial Documented Vital Signs Temperature 99.0 F 05/07/18 19:29 Pulse Rate 99 H 05/07/18 19:29 Respiratory Rate 18 05/07/18 19:29 Blood Pressure 139/73 05/07/18 19:29 Last Documented Vital Signs Temperature 98.2 F 05/07/18 20:47 Pulse Rate 77 05/07/18 20:49 Respiratory Rate 16 05/07/18 20:47 Blood Pressure 118/72 05/07/18 20:47 Pulse Oximetry 98 05/07/18 20:49 Medical Decision Making Lab Data Result diagrams: 05/07/18 20:10 05/07/18 20:10 Lab Results 05/07/18 05/07/18 05/07/18 Range/Units 20:10 20:10 20:10 CBC w Diff Auto diff final WBC 9.4 (4.0-11.0) th/mm3 RBC 4.62 (4.00-5.30) mil/mm3 Hgb 12.7 (11.6-15.3) gm/dL Hct 38.0 (35.0-46.0) % MCV 82.2 (80.0-100.0) fL MCH 27.5 (27.0-34.0) pg MCHC 33.5 (32.0-36.0) % RDW 13.9 (11.6-17.2) % Plt Count 269 (150-450) th/mm3 MPV 9.1 (7.0-11.0) fL Neut % (Auto) 66.1 (16.0-70.0) % Lymph % (Auto) 26.8 (9.0-44.0) % [place] % (Auto) 4.0 (0.0-8.0) % Eos % (Auto) 2.5 (0.0-4.0) % Baso % (Auto) 0.6 (0.0-2.0) % Neut # (Auto) 6.2 (1.8-7.7) th/mm3 Lymph # (Auto) 2.5 (1.0-4.8) th/mm3 [place] # (Auto) 0.4 (0.0-0.9) th/mm3 Eos # (Auto) 0.2 (0.0-0.4) th/mm3 Baso # (Auto) 0.1 (0.0-0.2) th/mm3 WBC Differential . Differential Comment . PT 28.4 H (9.8-11.6) sec INR 2.8 Ratio APTT 54.5 H (24.3-30.1) sec Sodium 139 (136-145) meq/L Potassium 3.7 (3.5-5.1) meq/L Chloride 103 (98-107) meq/L Carbon Dioxide 28.8 (21.0-32.0) meq/L Anion Gap 7 (5-15) meq/L BUN 11 (7-18) mg/dL Creatinine 0.98 (0.50-1.00) mg/dL Estimated GFR 68 L (>89) mL/min Random Glucose 101 (74-106) mg/dL Lactic Acid (0.4-2.0) mmol/L Calcium 9.1 (8.5-10.1) mg/dL Total Bilirubin 0.3 (0.2-1.0) mg/dL AST 14 L (15-37) U/L ALT 19 (10-53) U/L Alkaline Phosphatase 83 (45-117) U/L Total Protein 8.0 (6.4-8.2) g/dL Albumin 3.9 (3.4-5.0) g/dL Ur Collection Type Urine Color (Yellw/Straw) Urine Clarity (Clear) Urine pH (5.0-8.5) Ur Specific [place] (1.002-1.035) Urine Protein (Neg-Trace) mg/dL Urine Glucose (UA) (Negative) mg/dL Urine Ketones (Negative) mg/dL Urine Occult Blood (Negative) Urine Nitrate (Negative) Urine Bilirubin (Negative) Urine Urobilinogen (Less than 2) mg/dL Ur Leukocyte Esterase (Negative) Ur Squamous Epith Cells (0-5) /hpf Urine Culture Comments Urine Collection Time hours 05/07/18 05/07/18 Range/Units 20:15 21:05 CBC w Diff WBC (4.0-11.0) th/mm3 RBC (4.00-5.30) mil/mm3 Hgb (11.6-15.3) gm/dL Hct (35.0-46.0) % MCV (80.0-100.0) fL MCH (27.0-34.0) pg MCHC (32.0-36.0) % RDW (11.6-17.2) % Plt Count (150-450) th/mm3 MPV (7.0-11.0) fL Neut % (Auto) (16.0-70.0) % Lymph % (Auto) (9.0-44.0) % [place] % (Auto) (0.0-8.0) % Eos % (Auto) (0.0-4.0) % Baso % (Auto) (0.0-2.0) % Neut # (Auto) (1.8-7.7) th/mm3 Lymph # (Auto) (1.0-4.8) th/mm3 [place] # (Auto) (0.0-0.9) th/mm3 Eos # (Auto) (0.0-0.4) th/mm3 Baso # (Auto) (0.0-0.2) th/mm3 WBC Differential Differential Comment PT (9.8-11.6) sec INR Ratio APTT (24.3-30.1) sec Sodium (136-145) meq/L Potassium (3.5-5.1) meq/L Chloride (98-107) meq/L Carbon Dioxide (21.0-32.0) meq/L Anion Gap (5-15) meq/L BUN (7-18) mg/dL Creatinine (0.50-1.00) mg/dL Estimated GFR (>89) mL/min Random Glucose (74-106) mg/dL Lactic Acid 0.9 (0.4-2.0) mmol/L Calcium (8.5-10.1) mg/dL Total Bilirubin (0.2-1.0) mg/dL AST (15-37) U/L ALT (10-53) U/L Alkaline Phosphatase (45-117) U/L Total Protein (6.4-8.2) g/dL Albumin (3.4-5.0) g/dL Ur Collection Type Clean catch Urine Color Yellow (Yellw/Straw) Urine Clarity Clear (Clear) Urine pH 6.0 (5.0-8.5) Ur Specific [place] Less/equal 1.005 (1.002-1.035) Urine Protein Negative (Neg-Trace) mg/dL Urine Glucose (UA) Negative (Negative) mg/dL Urine Ketones Negative (Negative) mg/dL Urine Occult Blood Negative (Negative) Urine Nitrate Negative (Negative) Urine Bilirubin Negative (Negative) Urine Urobilinogen 0.2 (Less than 2) mg/dL Ur Leukocyte Esterase Negative (Negative) Ur Squamous Epith Cells 0-5 (0-5) /hpf Urine Culture Comments Culture not ind Urine Collection Time 2105 hours Imaging Data Radiologist's impression: Abdomen/Pelvis CT 05/07/18 20:02 CONCLUSION: 1. Focal cellulitis left lower quadrant anterior abdominal wall with probable small subcutaneous abscess as above. There is no extension to the abdominal wall musculature on CT examination. 2. Postoperative cholecystectomy. No acute findings within the abdomen. Intrauterine device with bilateral adnexal follicular cysts. Discharge Plan Discharge Disposition Patient Disposition: 02 Transfer to [facility] Discharge Condition Condition: Stable Discharge Details Diagnosis: Cellulitis Physicians Team ED Provider: Christiano Duarte Primary Care Provider: UNKNOWN, Rxs /Orders / Referrals /Forms Prescriptions: No Action clindamycin HCl 300 mg Capsule 300 mg PO QID RF: 0 warfarin 7.5 mg Tablet 7.5 mg PO DAILY RF: 0 lorazepam 0.5 mg Tablet 0.5 mg PO DAILY PRN (Reason: Anxiety) RF: 0 albuterol sulfate [ProAir HFA] 90 mcg/actuation Hfa Aerosol Inhaler 2 puff INHALATION Q4-6H PRN (Reason: Wheezing) RF: 0 Status ED Status: With Doctor
[2018-05-07 20:24] LABS: Baso # (Auto) 0.1 th/mm3 (0.0-0.2); Baso % (Auto) 0.6 % (0.0-2.0); Eos # (Auto) 0.2 th/mm3 (0.0-0.4); Eos % (Auto) 2.5 % (0.0-4.0); Hemoglobin 12.7 gm/dL (11.6-15.3); Lymph # (Auto) 2.5 th/mm3 (1.0-4.8); Lymph % (Auto) 26.8 % (9.0-44.0); Mean Corpuscular HGB Conc 33.5 % (32.0-36.0); Mean Corpuscular Hemoglobin 27.5 pg (27.0-34.0); Mean Corpuscular Volume 82.2 fL (80.0-100.0); Mean Platelet Volume 9.1 fL (7.0-11.0); Mono # (Auto) 0.4 th/mm3 (0.0-0.9); Neut # (Auto) 6.2 th/mm3 (1.8-7.7); Neut % (Auto) 66.1 % (16.0-70.0); Platelet Count 269 th/mm3 (150-450); Red Blood Count 4.62 mil/mm3 (4.00-5.30); Red Cell Distribution Width 13.9 % (11.6-17.2); White Blood Count 9.4 th/mm3 (4.0-11.0)
[2018-05-07] MEDS: Sod Chloride 0.9% Inj 1,000 ML IV.SIG SCH (20:28)
[2018-05-07 20:38] LABS: Activated Partial Thrombo Time 54.5 sec (24.3-30.1); INR 2.8 Ratio; Prothrombin Time 28.4 sec (9.8-11.6)
[2018-05-07 20:42] LABS: Chloride 103 meq/L (98-107); Potassium 3.7 meq/L (3.5-5.1); Sodium 139 meq/L (136-145)
[2018-05-07 20:45] LABS: Calcium 9.1 mg/dL (8.5-10.1)
[2018-05-07 20:46] LABS: Albumin 3.9 g/dL (3.4-5.0); Anion Gap 7 meq/L (5-15); Blood Urea Nitrogen 11 mg/dL (7-18); Carbon Dioxide 28.8 meq/L (21.0-32.0); Glucose,Random 101 mg/dL (74-106)
[2018-05-07 20:49] LABS: Alanine Aminotransferase 19 U/L (10-53); Aspartate Aminotransferase 14 U/L (15-37); Glomerular Filtration Rate 68 mL/min (>89)
[2018-05-07 20:52] LABS: Alkaline Phosphatase 83 U/L (45-117)
[2018-05-07] MEDS ORDERED: Lidocaine 1%/Epinephrine 1:100,000 Inj 20 ML Vial INFILTRATN ONE (20:57)
[2018-05-07 21:31] LABS: Bilirubin,Urine Negative (Negative); Clarity,Urine Clear (Clear); Color,Urine Yellow (Yellw/Straw); Glucose,Urine (UA) Negative (Negative); Leukocyte Esterase,Urine Negative (Negative); Nitrite,Urine Negative (Negative); Specific Gravity,Urine Less/Equal 1.005 (1.002-1.035); Urobilinogen,Urine 0.2 mg/dL (Less than 2)
[2018-05-07 21:43] LABS: Collection Time,Urine 2105 hours
[2018-05-07 21:44] LABS: Squamous Epithelial Cell,Urine 0-5 /hpf (0-5)
--- NOTE | 2018-05-07 23:11 | CT ---
EXAM DATE: 05/07/2018 10:44 PM EDT AGE/SEX: 28 years / Female INDICATIONS: Left lower quadrant abdominal wall abscess. CLINICAL DATA: This is the patient's initial encounter. Patient reports that signs and symptoms have been present for 1 week and indicates a pain score of 8/10. MEDICAL/SURGICAL HISTORY: Vertigo. None. ORAL CONTRAST: No oral contrast ingested. RADIATION DOSE: 16.46 CTDI (mGy) COMPARISON: No prior exams available for comparison. TECHNIQUE: Multiple contiguous axial images were obtained through the abdomen and pelvis following b olus infusion of 100 ml Omnipaque 350 (iohexol) nonionic water-soluble contrast as a single exam do se. No oral contrast ingested. Using automated exposure control and adjustment of the mA and/or kV a ccording to patient size, radiation dose was kept as low as reasonably achievable to obtain optimal d iagnostic quality images. DICOM format image data is available electronically for review and compari son. FINDINGS: There is patchy airspace disease in the right lower lobe inferiorly, possibly small bronchopneumonia. Also dependent atelectasis. No acute findings in the liver, spleen, adrenals, kidneys or pancreas. Previous cholecystectomy. There is focal skin thickening and cellulitis in the left lower quadrant anterior abdominal wall with a probable small cutaneous or subcutaneous abscess measuring about 1.3 x 3 cm. The inflammatory hearn ge does not extend all the way to the abdominal musculature. Intrauterine device is present. Uterus is somewhat heterogeneous in appearance. Bilateral adnexal fol licular cysts present. CONCLUSION: 1. Focal cellulitis left lower quadrant anterior abdominal wall with probable small subcutaneous abs cess as above. There is no extension to the abdominal wall musculature on CT examination. 2. Postoperative cholecystectomy. No acute findings within the abdomen. Intrauterine device with declan ateral adnexal follicular cysts. Electronically signed by: Eulalio Carlson MD 05/07/2018 11:10 PM EDT
[2018-05-08] MEDS ORDERED: Acetaminophen 325 MG Tablet PO PRN (00:32)
[2018-05-08] MEDS ORDERED: Vancomycin Consult Pharmacy 1 EACH OTHER SCH (01:00)
[2018-05-08] MEDS: Sod Chloride 0.9% Inj 1,000 ML IV.CONT SCH ×2 (01:02→14:01)
[2018-05-08] MEDS: Morphine Inj 4 MG/ML Vial IV.PUSH PRN ×5 (01:03→21:51)
[2018-05-08] MEDS: Piperacil/Tazo 3.375 GM Premix 50 ML IV.SIG SCH ×4 (02:03→20:32)
[2018-05-08] MEDS: Vancomycin Inj 1,250 MG in Sodium Chlor 0.9% Inj 250 ML IV.SIG SCH ×3 (04:27→21:31)
[2018-05-08] MEDS ORDERED: LORazepam 0.5 MG Tablet PO PRN (11:33)
--- NOTE | 2018-05-08 11:43 | P.HPIM ---
History of Present Illness Primary Care Physician: UNKNOWN Chief Complaint: Left abdominal wall skin infection History of Present Illness: This patient is a 28-year-old female who is relatively healthy other than a hypercoagulable state for which she is being treated. She comes to the emergency room with at least 7 days of abdominal discomfort in the left lower abdominal wall. She says she was bitten by a bug and the discomfort became great she is her primary care doctor who prescribed clindamycin. She did take this medication for several days with increased pain and increased chills and subjective fevers. She came to the emergency room overnight because of the complaint. She did have an I&D done in the emergency room. She is not febrile and has no leukocytosis but has severe pain relieved with IV narcotics. Patient has come to the hospital for further evaluation treatment. - Diagnosis (1) Abscess, abdomen (2) History of hypercoagulable state Inpatient Certification: I certify that the inpatient services were ordered in accordance with Medicare regulations governing the order. This includes certification that hospital inpatient services are reasonable and necessary and in the case of services not specified as inpatient-only under 42 CFR 419.22(n), that they are appropriately provided as inpatient services in accordance to with the 2-midnight benchmark under 43 CFR 412.3(e) Estimated Total Length of Stay (Days): 2 Plans for Post Hospital Care: Home Review of Systems All other systems reviewed negative except as stated in HPI Skin/Breast: Reports wounds PMFSH - History History Provided By: Patient - Medical History Medical History: Medical History (Last Reviewed 05/08/18 @ 11:37 by Tiffany White MD) APS (antiphospholipid syndrome) Anxiety Asthma Bronchitis DVT (deep venous thrombosis) Depression Gallbladder disease Lupus anticoagulant disorder Migraine Pneumonia Pulmonary embolism Reactive airway disease Visual impairment - Surgical History Surgical History: Surgical History (Last Reviewed 05/08/18 @ 11:37 by Tiffany White MD) History of cholecystectomy - Tobacco History Second Hand Smoke Exposure: Yes Tobacco Use In Past 30 Days: Yes Smoking Status: Current some day smoker Tobacco Type: Cigarettes - Alcohol History How Often Do You Have a Drink Containing Alcohol: 2 to 4 times a month - Substance Use History Substance History: No History of Abuse - Travel History Recent Travel in the [place] Within the Last 8 Weeks: No Recent Travel Out of the Country Within the Last 8 Weeks: No - Immunization History Tetanus Immunization: <5 Years Hx Influenza Vaccine This Season: No Medications and Allergies Active Medications: Active Medications Acetaminophen (Tylenol) 650 mg PO Q4H PRN PRN Reason: Temp > 100.4 Sodium Chloride (Ns Inj) 1,000 mls @ 0 mls/hr IV.SIG .Q0M [facility] Last Infusion: 05/07/18 21:43 Dose: 1,000 mls/hr Sodium Chloride (Ns Inj) 1,000 mls @ 0 mls/hr IV.SIG .Q0M [facility] Last Admin: 05/07/18 23:32 Dose: 999 mls/hr Sodium Chloride (Ns Inj) 1,000 mls @ 0 mls/hr IV.SIG .Q0M [facility] Last Infusion: 05/07/18 23:31 Dose: Infused Sodium Chloride (Ns Inj) 1,000 mls @ 100 mls/hr IV.CONT .Q10H [facility] Last Admin: 05/08/18 01:02 Dose: 100 mls/hr Pharmacy Profile Note (Vancomycin Consult Pharmacy) 0 mls @ 0 mls/hr OTHER [facility] Piperacillin/Tazobactam/Dextrose (Zosyn 3.375 Gm Premix) 50 mls @ 100 mls/hr IV.SIG Q6H [facility] Last Admin: 05/08/18 09:45 Dose: 100 mls/hr Vancomycin HCl 1,250 mg/ (Sodium Chloride) 262.5 mls @ 250 mls/hr IV.SIG Q8H [facility] Last Infusion: 05/08/18 05:30 Dose: Infused Miscellaneous Information ([facility] Ordered Lab Info) 0 each OTHER ONCE ONE Stop: 05/09/18 11:46 Morphine Sulfate (Morphine Inj) 2 mg IV.PUSH Q3H PRN PRN Reason: PAIN SCALE 1 TO 10 Last Admin: 05/08/18 08:07 Dose: 2 mg Ondansetron HCl (Zofran Inj) 4 mg IV.PUSH Q6H PRN PRN Reason: NAUSEA OR VOMITING Last Admin: 05/08/18 01:03 Dose: 4 mg Sodium Chloride (Ns Flush) 2 ml IV.FLUSH BID [facility] Last Admin: 05/08/18 08:08 Dose: 2 ml Sodium Chloride (Ns Flush) 2 ml IV.FLUSH PRN PRN PRN Reason: FLUSH AFTER USING IV ACCESS Allergies Allergy/AdvReac Type Severity Reaction Status Date / Time Sulfa (Sulfonamide Allergy Severe ITCHING Verified 05/07/18 19:29 Antibiotics) Home Medications Medication Instructions Recorded Confirmed Type albuterol sulfate [ProAir HFA] 2 puff INHALATION Q4-6H PRN 05/07/18 05/07/18 History clindamycin HCl 300 mg PO QID 05/07/18 05/07/18 History lorazepam 0.5 mg PO DAILY PRN 05/07/18 05/07/18 History warfarin 7.5 mg PO DAILY 05/07/18 05/07/18 History Exam Vital signs: Vital Signs 05/07/18 19:29 05/07/18 20:47 05/07/18 20:49 Temperature 99.0 F 98.2 F Pulse Rate 99 H 80 77 Respiratory Rate 18 16 Blood Pressure 139/73 118/72 Pulse Oximetry 95 98 05/08/18 00:10 05/08/18 01:20 05/08/18 08:04 Temperature 97.8 F 96.6 F L 98.9 F Pulse Rate 88 95 H 75 Respiratory Rate 16 20 14 Blood Pressure 102/59 L 108/69 101/51 L Pulse Oximetry 96 98 96 Intake & Output 05/07/18 05/08/18 05/08/18 18:59 06:59 18:59 Intake Total 1862.5 / 1862.5 Output Total 600 / 600 Balance 1262.5 / 1262.5 Weight 101.3 kg Intake: IV 1662.5 / 1662.5 Zosyn 3.375 GM Premix 50 ML @ 50 / 50 100 mls/hr IV.SIG Q6H [facility] Rx#: [id number] Zosyn 4.5 GM Premix 4.5 gm In 100 / 100 100 ml @ 200 mls/hr IV.SIG STAT STA Rx#:[id number] NS Inj 1,000 ML @ Wide Open IV. 1000 / 1000 SIG .Q0M [facility] Rx#:[id number] Vancomycin Inj 1,000 MG In NS 250 / 250 Inj 250 ML @ 250 mls/hr IV.SIG STAT STA Rx#:[id number] Vancomycin Inj 1,250 MG In NS 262.5 / 262.5 Inj 250 ML @ 250 mls/hr IV.SIG Q8H [facility] Rx#:[id number] Oral 200 / 200 Output: Urine 600 / 600 Other: # Voids 1 Date of Last Bowel Movement 05/07/18 Weight On Admission 101.3 kg Narrative: GENERAL: Patient calm resting and without complaints SKIN: Left abdominal I&D site warm, erythematous and tender, packed dressing for dime sized open area, warm and dry. No rashes or ecchymotic injuries EYES: Pupils equal and round. No scleral icterus. No injection or drainage. ENT: External ear exam normal. No acute nasal bleeding or discharge. Mucous membranes pink and moist. CARDIOVASCULAR: Regular rate and rhythm. No murmurs gallops or rubs appreciated RESPIRATORY: Good air flow and effort without accessory muscle use. Clear to auscultation. Breath sounds equal bilaterally. GASTROINTESTINAL: Abdomen soft, non-tender, nondistended. Hepatic and splenic margins not palpable. MUSCULOSKELETAL: Extremities without clubbing, cyanosis, or edema. No obvious deformities. NEUROLOGICAL: Awake and alert. No obvious cranial nerve deficits. Motor grossly within normal limits. Five out of 5 muscle strength in the arms and legs. Normal speech. Results - Labs CBC & Chem 7: 05/07/18 20:10 05/07/18 20:10 Labs: Short CBC 05/07/18 Range/Units 20:10 WBC 9.4 (4.0-11.0) th/mm3 Hgb 12.7 (11.6-15.3) gm/dL Hct 38.0 (35.0-46.0) % Plt Count 269 (150-450) th/mm3 BMP 05/07/18 20:10 Sodium 139 Potassium 3.7 Chloride 103 Carbon Dioxide 28.8 BUN 11 Creatinine 0.98 Calcium 9.1 Liver Function 05/07/18 Range/Units 20:10 Total Bilirubin 0.3 (0.2-1.0) mg/dL AST 14 L (15-37) U/L ALT 19 (10-53) U/L Alkaline Phosphatase 83 (45-117) U/L Albumin 3.9 (3.4-5.0) g/dL Urine 05/07/18 Range/Units 21:05 Urine Color Yellow (Yellw/Straw) Urine Clarity Clear (Clear) Urine pH 6.0 (5.0-8.5) Ur Specific [place] Less/equal 1.005 (1.002-1.035) Urine Protein Negative (Neg-Trace) mg/dL Urine Glucose (UA) Negative (Negative) mg/dL - Imaging Impressions Abdomen/Pelvis CT 05/07/18 20:02 CONCLUSION: 1. Focal cellulitis left lower quadrant anterior abdominal wall with probable small subcutaneous abscess as above. There is no extension to the abdominal wall musculature on CT examination. 2. Postoperative cholecystectomy. No acute findings within the abdomen. Intrauterine device with bilateral adnexal follicular cysts. Caprini VTE Risk Assessment Caprini VTE Risk Assessment: Moderate/High Risk (score >= 2) VTE Pharmacological Exception Reason: Coagulopathy,INR elevated Caprini Risk Assessment Model: Point Value = 1 Point Value = 2 Point Value = 3 Point Value = 5 Age 41-60 Minor surgery BMI > 25 kg/m2 Swollen legs Varicose veins or History of unexplained or recurrent spontaneous Oral contraceptives or hormone replacement Sepsis (< 1 month) Serious lung disease, including pneumonia (< 1 month) Abnormal pulmonary function Acute myocardial infarction Congestive heart failure (< 1 month) History of inflammatory bowel disease Medical patient at bed rest Age 61-74 Arthroscopic surgery Major open surgery (> 45 min) Laparoscopic surgery (> 45 min) Malignancy Confined to bed (> 72 hours) Immobilizing plaster cast Central venous access Age >= 75 History of VTE Family history of VTE Factor V Leiden Prothrombin [id number] Lupus anticoagulant Anticardiolipin antibodies Elevated serum homocysteine Heparin-induced thrombocytopenia Other congenital or acquired thrombophilia Stroke (< 1 month) Elective arthroplasty Hip, pelvis, or leg fracture Acute spinal cord injury (< 1 month) Prophylaxis Regimen: Total Risk Factor Score Risk Level Prophylaxis Regimen 0-1 Low Early ambulation 2 Moderate Order ONE of the following: *Sequential Compression Device (SCD) *Heparin 5000 units SQ BID 3-4 Higher Order ONE of the following medications: *Heparin 5000 units SQ TID *Enoxaparin/Lovenox 40 mg SQ daily (WT < 150 kg, CrCl > 30 mL/min) *Enoxaparin/Lovenox 30 mg SQ daily (WT < 150 kg, CrCl > 10-29 mL/min) *Enoxaparin/Lovenox 30 mg SQ BID (WT < 150 kg, CrCl > 30 mL/min) AND/OR *Sequential Compression Device (SCD) 5 or more Highest Order ONE of the following medications: *Heparin 5000 units SQ TID (Preferred with Epidurals) *Enoxaparin/Lovenox 40 mg SQ daily (WT < 150 kg, CrCl > 30 mL/min) *Enoxaparin/Lovenox 30 mg SQ daily (WT < 150 kg, CrCl > 10-29 mL/min) *Enoxaparin/Lovenox 30 mg SQ BID (WT < 150 kg, CrCl > 30 mL/min) AND *Sequential Compression Device (SCD) Assessment and Plan - Assessment (1) Abscess, abdomen Status: Acute Plan: Continue vancomycin and Zosyn Follow-up cultures Continue IV morphine for pain status post I&D (2) History of hypercoagulable state Code(s): Z86.2 - Personal history of diseases of the blood and blood-forming organs and certain disorders involving the immune mechanism Status: Acute Plan: Continue warfarin, follow INR while on antibiotics - Plan Discharge Planning: Pending cultures, likely discharge on oral into the H&P: Quality - VTE Deep Vein Thrombosis/Pulmonary Embolism Present on Admission: No
[2018-05-08] MEDS: Sod Chloride 0.9% Inj 1,000 ML IV.SIG SCH (13:56)
[2018-05-08] MEDS: Ketorolac Inj 30 MG/ML (IVP) Vial IV.PUSH PRN ×2 (15:06→20:41)
--- NOTE | 2018-05-08 20:54 | ECG ---
Date Performed: 05/07/2018 Time Performed: 20:22:42 PTAGE: 28 years EKG: Sinus rhythm LOW QRS VOLTAGE IN PRECORDIAL LEADS POSSIBLE RIGHT VENTRICULAR CONDUCTION DELAY BORDERLINE ECG PREVIOUS TRACING : 10/06/2014 08.30 No significant change when compared with previous DOCTOR: Alejandro Roy Interpretating Date/Time 05/08/2018 20:53:24
[2018-05-09] MEDS: Piperacil/Tazo 3.375 GM Premix 50 ML IV.SIG SCH ×3 (02:05→14:13)
[2018-05-09] MEDS: Sod Chloride 0.9% Inj 1,000 ML IV.CONT SCH ×3 (02:37→18:40)
[2018-05-09] MEDS: Ketorolac Inj 30 MG/ML (IVP) Vial IV.PUSH PRN ×3 (04:49→20:21)
[2018-05-09] MEDS: Vancomycin Inj 1,250 MG in Sodium Chlor 0.9% Inj 250 ML IV.SIG SCH ×2 (04:49→14:14)
[2018-05-09 05:58] LABS: Baso % (Auto) 0.8 % (0.0-2.0); Eos # (Auto) 0.4 th/mm3 (0.0-0.4); Eos % (Auto) 6.3 % (0.0-4.0); Hematocrit 36.2 % (35.0-46.0); Hemoglobin 11.6 gm/dL (11.6-15.3); Lymph # (Auto) 2.6 th/mm3 (1.0-4.8); Mean Corpuscular Hemoglobin 26.7 pg (27.0-34.0); Mean Corpuscular Volume 83.4 fL (80.0-100.0); Mean Platelet Volume 9.8 fL (7.0-11.0); Mono # (Auto) 0.4 th/mm3 (0.0-0.9); Mono % (Auto) 6.6 % (0.0-8.0); Neut # (Auto) 2.6 th/mm3 (1.8-7.7); Neut % (Auto) 43.3 % (16.0-70.0); Platelet Count 233 th/mm3 (150-450); Red Blood Count 4.34 mil/mm3 (4.00-5.30); Red Cell Distribution Width 14.5 % (11.6-17.2)
[2018-05-09 06:07] LABS: Potassium 4.2 meq/L (3.5-5.1)
[2018-05-09 06:13] LABS: INR 3.1 Ratio; Prothrombin Time 30.8 sec (9.8-11.6)
[2018-05-09 06:18] LABS: Calcium 8.2 mg/dL (8.5-10.1)
--- NOTE | 2018-05-09 09:16 | P.PN ---
Subjective Interval history: 28-year-old female who is seen in follow-up for a left-sided abdominal wall abscess. Patient states that they did take the packing out last night. Is still very tender. She is concerned because the redness is going past the previously marked line. Patient remains afebrile. Patient is responding to treatment. Notified her that we will wait cultures for appropriate antibiotics. Physical Exam Vital signs: Vital Signs 05/08/18 12:07 05/08/18 20:00 05/09/18 00:00 Temperature 98.9 F 97.9 F 96.5 F L Pulse Rate 75 66 66 Respiratory Rate 16 18 20 Blood Pressure 101/51 L 98/57 L 92/53 L Pulse Oximetry 96 97 97 05/09/18 08:00 Temperature 97.2 F L Pulse Rate 64 Respiratory Rate 17 Blood Pressure 108/63 Pulse Oximetry 94 L Intake & Output 05/08/18 05/09/18 05/09/18 18:59 06:59 18:59 Intake Total 2312.5 / 2312.5 2915.0 / 2915.0 Balance 2312.5 / 2312.5 2915.0 / 2915.0 Weight 75.6 kg Intake: IV 1312.5 / 1312.5 2675.0 / 2675.0 NS Inj 1,000 ML @ 100 mls/hr IV 1000 / 1000 1000 / 1000 .CONT .Q10H [facility] Rx#:[id number] Zosyn 3.375 GM Premix 50 ML @ 50 / 50 150 / 150 100 mls/hr IV.SIG Q6H [facility] Rx#: [id number] NS Inj 1,000 ML @ Wide Open IV. 1000 / 1000 SIG .Q0M [facility] Rx#:[id number] Vancomycin Inj 1,250 MG In NS 262.5 / 262.5 525.0 / 525.0 Inj 250 ML @ 250 mls/hr IV.SIG Q8H [facility] Rx#:[id number] Oral 1000 / 1000 240 / 240 Other: # Voids 3 2 Date of Last Bowel Movement 05/07/18 # Bowel Movements 0 Narrative: GENERAL: Well-developed, well-nourished, in no acute distress. alert and orientated HEENT: Head is normocephalic without any lesions or masses noted. Facial features are symmetric. Eyes: Extraocular muscles are intact. Conjunctivae were clear. NECK: Supple without any masses. Trachea midline no deviation. No JVD, CARDIAC: Regular rhythm, regular rate. S1/S2 are heard. No murmurs gallops or rubs. LUNGS: Clear to auscultation bilaterally. No wheeze, rhonchi or rales. No use of accessory muscles on inspiration or expiration. ABDOMEN: Soft, nontender. Nondistended. Bowel sounds heard in all 4 quadrants. No organomegaly or masses. Negative rebound, negative guarding. Patient does have a open wound noted on the left lower abdomen. There is mild pinkness noted extending past the lateral side of the previously marked line. No granulation was present. Upon evaluating the wound there does not appear to be any exudative material. Because only has serosanguineous fluid EXTREMITIES: No edema, pulses are equal bilaterally. No cyanosis or clubbing NEUROLOGY: Mood and affect appear appropriate. Cranial nerves II through XII grossly intact. Moving all extremities, speech is clear Results - Labs CBC & Chem 7: 05/09/18 04:40 05/09/18 04:40 Laboratory Results - last 24 hr 05/09/18 05/09/18 05/09/18 04:40 04:40 04:40 CBC w Diff Auto diff final WBC 6.0 RBC 4.34 Hgb 11.6 Hct 36.2 MCV 83.4 MCH 26.7 L MCHC 32.0 RDW 14.5 Plt Count 233 MPV 9.8 Neut % (Auto) 43.3 Lymph % (Auto) 43.0 [place] % (Auto) 6.6 Eos % (Auto) 6.3 H Baso % (Auto) 0.8 Neut # (Auto) 2.6 Lymph # (Auto) 2.6 [place] # (Auto) 0.4 Eos # (Auto) 0.4 Baso # (Auto) 0.0 WBC Differential . Differential Comment . PT 30.8 H INR 3.1 Sodium 142 Potassium 4.2 Chloride 109 H Carbon Dioxide 27.0 Anion Gap 6 BUN 7 Creatinine 0.87 Estimated GFR 78 L Random Glucose 95 Calcium 8.2 L D Microbiology 05/07/18 20:15 Blood - Peripheral Aerobic Blood Culture - Preliminary No growth in 1 day 05/07/18 20:15 Blood - Peripheral Anaerobic Blood Culture - Preliminary No growth in 1 day 05/07/18 20:10 Blood - Peripheral Aerobic Blood Culture - Preliminary No growth in 1 day 05/07/18 20:10 Blood - Peripheral Anaerobic Blood Culture - Preliminary No growth in 1 day - Procedures 05/07/18: Incision and drainage done of the left abdominal abscess Assessment and Plan - Assessment (1) Abscess, abdomen Status: Acute Plan: -Erythema appears to be lightening up, however is extending past previously marked line -Status post incision and drainage done in the emergency department on 05/07/18 -Continue bandage changes with iodoform packing daily -Continue vancomycin and Zosyn -Follow-up cultures -Continue IV morphine/Toradol for pain, start [place] 7.5 every 6 hours for pain 1 -7 (2) History of hypercoagulable state Code(s): Z86.2 - Personal history of diseases of the blood and blood-forming organs and certain disorders involving the immune mechanism Status: Acute Plan: -Continue warfarin, -follow INR while on antibiotics -Pharmacy consulted for INR management
[2018-05-09] MEDS ORDERED: Warfarin Consult Pharmacy 1 EACH OTHER SCH (10:00)
[2018-05-09] MEDS: Morphine Inj 4 MG/ML Vial IV.PUSH PRN (10:00)
[2018-05-09] MEDS ORDERED: Pharmacy Ordered Lab Info OTHER ONE (11:45)
[2018-05-10] MEDS: Sod Chloride 0.9% Inj 1,000 ML IV.CONT SCH ×3 (00:19→14:43)
[2018-05-10] MEDS: Ketorolac Inj 30 MG/ML (IVP) Vial IV.PUSH PRN (03:38)
[2018-05-10] MEDS ORDERED: Vancomycin Inj 1,000 MG in Sodium Chlor 0.9% Inj 250 ML IV.SIG SCH (04:00)
--- NOTE | 2018-05-10 11:24 | P.DS ---
Date of admission: 05/07/18 23:50 Primary care physician: UNKNOWN Attending physician on discharge: Bryce Sullivan Anticipated date of discharge: 05/10/18 Brief History from admission: This patient is a 28-year-old female who is relatively healthy other than a hypercoagulable state for which she is being treated. She comes to the emergency room with at least 7 days of abdominal discomfort in the left lower abdominal wall. She says she was bitten by a bug and the discomfort became great she is her primary care doctor who prescribed clindamycin. She did take this medication for several days with increased pain and increased chills and subjective fevers. She came to the emergency room overnight because of the complaint. She did have an I&D done in the emergency room. She is not febrile and has no leukocytosis but has severe pain relieved with IV narcotics. Patient has come to the hospital for further evaluation treatment. DS: Diagnosis - Discharge Diagnosis (1) Abscess, abdomen Status: Acute (2) History of hypercoagulable state Status: Acute DS: Medications - Discharge Medications Prescriptions: doxycycline hyclate [Morgidox] 100 mg PO Q12H #14 cap hydrocodone-acetaminophen 1 tab PO Q6H PRN #12 tab PRN Reason: Acute Pain DS: Summary Hospital Course: 28-year-old female with known history of antiphospholipid antibody syndrome on Coumadin presented to the emergency department because of left lower abdomen abscess and cellulitis. Patient was evaluated emergency department in was on clindamycin previously in outpatient setting did not improve. She had an incision and drainage done in the emergency department and was recommended admission with IV antibiotics which started with vancomycin and Zosyn. Culture was taken and report indicated MRSA which was resistant to clindamycin. Patient improved during her stay in the hospital with significant reduction of the erythema, complete resolution of cellulitis. Wound is only draining serosanguineous drainage. Patient tolerated treatment well. With sensitivities and hand were able to prescribe patient appropriate antibiotics upon discharge for completion of her therapy. Patient clinically stable this time. We will plan discharge accordingly. - Time Spent with Patient Total time spent providing and/or coordinating discharge services: - Quality: VTE Deep Vein Thrombosis/Pulmonary Embolism Present on Admission: No Exam Vital signs: Vital Signs 05/09/18 12:00 05/09/18 16:00 05/09/18 20:00 Temperature 96.9 F L 97.0 F L 97.6 F Pulse Rate 64 62 62 Respiratory Rate 18 18 20 Blood Pressure 129/82 126/84 109/61 Pulse Oximetry 95 95 98 05/10/18 00:00 05/10/18 07:17 Temperature 96.2 F L 97.4 F L Pulse Rate 52 L 64 Respiratory Rate 20 20 Blood Pressure 100/60 107/56 L Pulse Oximetry 99 93 L Intake & Output 05/09/18 05/10/18 05/10/18 18:59 06:59 18:59 Intake Total 2009 1480 / 1480 Balance 2009 1480 / 1480 Weight 102.5 kg Intake: IV 1050 / 1050 1000 / 1000 NS Inj 1,000 ML @ 100 mls/hr IV 1000 / 1000 1000 / 1000 .CONT .Q10H [facility] Rx#:[id number] Zosyn 3.375 GM Premix 50 ML @ 50 / 50 100 mls/hr IV.SIG Q6H [facility] Rx#: [id number] Oral 960 / 960 480 / 480 Other: # Voids 5 4 # Bowel Movements 0 1 Narrative: GENERAL: Well-developed, well-nourished, in no acute distress. alert and orientated HEENT: Head is normocephalic without any lesions or masses noted. Facial features are symmetric. Eyes: Extraocular muscles are intact. Conjunctivae were clear. NECK: Supple without any masses. Trachea midline no deviation. No JVD, CARDIAC: Regular rhythm, regular rate. S1/S2 are heard. No murmurs gallops or rubs. LUNGS: Clear to auscultation bilaterally. No wheeze, rhonchi or rales. No use of accessory muscles on inspiration or expiration. ABDOMEN: Soft, nontender. Nondistended. Bowel sounds heard in all 4 quadrants. No organomegaly or masses. Negative rebound, negative guarding. Erythema was completely resolved, wound only draining serosanguineous drainage. EXTREMITIES: No edema, pulses are equal bilaterally. No cyanosis or clubbing NEUROLOGY: Mood and affect appear appropriate. Cranial nerves II through XII grossly intact. Moving all extremities, speech is clear Results Procedures completed during hospitalization: 05/07/18: Incision and drainage done of the left abdominal abscess Labs on day of discharge: Labs from last 24 hours 05/09/18 13:40 Vancomycin Trough 18.5 H Preliminary micro results at discharge 05/07/18 20:15 Aerobic Blood Culture - Preliminary Blood - Peripheral No growth in 3 days Anaerobic Blood Culture - Preliminary No growth in 3 days 05/07/18 20:10 Aerobic Blood Culture - Preliminary Blood - Peripheral No growth in 3 days Anaerobic Blood Culture - Preliminary No growth in 3 days - Impressions ITS Impressions Abdomen/Pelvis CT 05/07/18 20:02 CONCLUSION: 1. Focal cellulitis left lower quadrant anterior abdominal wall with probable small subcutaneous abscess as above. There is no extension to the abdominal wall musculature on CT examination. 2. Postoperative cholecystectomy. No acute findings within the abdomen. Intrauterine device with bilateral adnexal follicular cysts. Discharge Plan - Discharge Disposition Patient Disposition: Discharge Home - Discharge Condition Condition: Stable - Discharge Order Discharge Orders: Discharge Order (Routine); Ordered 05/10/18 Ordered By: José Luis Kiser - Discharge Details Anticipated Discharge Date: 05/10/18 - Physicians Team Primary Care Provider: UNKNOWN, Attending Provider: Bryce Sullivan Other Providers: Bumpr,Insurance
[2018-05-10 11:44] LABS: INR 1.8 Ratio; Prothrombin Time 17.9 sec (9.8-11.6)
[2018-05-10] MEDS: Morphine Inj 4 MG/ML Vial IV.PUSH PRN (12:32)
[2018-05-11] MEDS ORDERED: Pharmacy Ordered Lab Info OTHER ONE (03:45)
== END 2018-05-10 15:33 | disposition home or self-care (01) ==
LOC: PHEDA 19:04 → PHED 19:04 → OBSVTOIN 23:50 → PH3 05-08 00:42
PROVIDERS: ADMIT Family Medicine; ATTEND Family Medicine